=== PATIENT | male | born 1975 | race Caucasian/White ===

== ENCOUNTER 2019-01-14 08:06 | Observation (INO) ==
[2019-01-14] MEDS ORDERED: diazePAM 10 MG/2 ML SYRINGE IVP ONE (08:10)
[2019-01-14] MEDS ORDERED: 0.9 % Sodium Chloride 1,000 ML IVC ONE (08:13)
--- NOTE | 2019-01-14 08:14 | Emergency Department Note ---
Disposition Clinical Impression: Alcohol withdrawal Disposition: Admitted As Inpatient Condition: Fair General Adult HPI - General Chief complaint: ED General Medical Stated complaint: Numb all over Time Seen by Provider: 01/14/19 08:08 - Related Data Previous Rx's Medication Instructions Recorded RX: Amlodipine [Norvasc] 5 mg PO DAILY 30 Days tablet 09/21/15 RX: Chlordiazepoxide [Librium] 25 mg PO TID PRN 10 Days capsule 09/21/15 RX: Metoprolol [Lopressor] 50 mg PO BID 30 Days tablet 09/21/15 RX: Thiamine (B-1) [Vitamin B-1] 100 mg PO DAILY 30 Days tablet 09/21/15 RX: Vitamin B Complex/Vit C/Vit E 1 each PO DAILY 30 Days tablet 09/21/15 [Stresstab] RX: Paroxetine [Paxil] 20 mg PO DAILY #30 tablet 04/12/16 Allergies Allergy/AdvReac Type Severity Reaction Status Date / Time No Known Drug Allergies Allergy See Verified 09/19/15 14:25 Comments Past Medical History - Past Medical History Medical history: Reports: diabetes, hypertension Surgical history: Reports: no surgical history Psychiatric history: Reports: anxiety - Social History Smoking Status: Current every day smoker Smokeless Tobacco Status: Yes Alcohol use: Reports: heavy Drug use: Reports: none Course Vital Signs Temperature 98.3 F 01/14/19 08:09 Pulse Rate 117 01/14/19 08:09 Respiratory Rate 20 01/14/19 08:09 Blood Pressure 166/125 01/14/19 08:09 O2 Sat by Pulse Oximetry 97 01/14/19 08:09 Temperature 98.9 F 01/14/19 15:29 Pulse Rate 102 01/14/19 15:29 Respiratory Rate 18 01/14/19 15:29 Blood Pressure 159/108 01/14/19 15:29 O2 Sat by Pulse Oximetry 98 01/14/19 15:29 Oxygen Delivery Oxygen Delivery Room Air Medical Decision Making - Lab Data Result diagrams: 01/14/19 08:39 01/14/19 08:39 Lab Results 01/14/19 01/14/19 01/14/19 Range/Units 08:18 08:39 08:39 WBC 5.7 (4.3-11.1) K/mcL RBC 4.30 (4.19-5.50) M/mcL Hgb 13.0 (12.9-16.9) g/dL Hct 38.7 (37.5-50.1) % MCV 90.0 (83.0-100.0) fL MCH 30.2 (28.0-33.3) pg MCHC 33.6 (31.6-35.5) g/dL RDW 12.7 (11.5-14.5) % Plt Count 135 L (140-400) K/mcL MPV 9.5 (9.4-12.4) fL Immature Gran % 0.3 (0-4) % Seg Neutrophils % 74.3 % Lymphocytes % 13.6 % Monocytes % 10.8 % Eosinophils % 0.3 % Basophils % 0.7 % Neutrophils # 4.3 (1.6-8.9) K/mcL Lymphocytes # 0.8 (0.6-4.6) K/mcL Monocytes # 0.6 (0.0-1.3) K/mcL Eosinophils # 0.0 (0.0-0.6) K/mcL Basophils # 0.0 (0.0-0.2) K/mcL Sodium 138 (136-145) mEq/L Potassium 3.1 L (3.5-5.1) mEq/L Chloride 103 (98-107) mEq/L Carbon Dioxide 25 (23-29) mEq/L BUN 8 (6-20) mg/dL Creatinine 0.64 L (0.70-1.30) mg/dL Est GFR ( Amer) > 60 (> 60) Est GFR (Non-Af Amer) > 60 (> 60) BUN/Creatinine Ratio 13 (6-26) Glucose 116 H (70-105) mg/dL POC Glucose 129 H (70-99) mg/dL Calculated Osmolality 285 (280-300) Calcium 8.8 (8.6-10.3) mg/dL Magnesium 1.6 (1.6-2.6) mg/dL Total Bilirubin 0.8 (0.3-1.0) mg/dL AST 28 (13-39) Units/L ALT 16 (7-52) Units/L Alkaline Phosphatase 76 (34-104) Units/L Troponin I < 0.03 (< 0.04) ng/mL Serum Total Protein 6.1 L (6.4-8.9) g/dL Albumin 3.9 (3.5-5.7) g/dL Globulin 2.2 L (2.4-3.5) g/dL Albumin/Globulin Ratio 1.8 (1.1-2.2) TSH 2.652 (0.340-5.600) mcIU/mL Ethyl Alcohol (Less than 10) mg/dL 01/14/19 Range/Units 08:39 WBC (4.3-11.1) K/mcL RBC (4.19-5.50) M/mcL Hgb (12.9-16.9) g/dL Hct (37.5-50.1) % MCV (83.0-100.0) fL MCH (28.0-33.3) pg MCHC (31.6-35.5) g/dL RDW (11.5-14.5) % Plt Count (140-400) K/mcL MPV (9.4-12.4) fL Immature Gran % (0-4) % Seg Neutrophils % % Lymphocytes % % Monocytes % % Eosinophils % % Basophils % % Neutrophils # (1.6-8.9) K/mcL Lymphocytes # (0.6-4.6) K/mcL Monocytes # (0.0-1.3) K/mcL Eosinophils # (0.0-0.6) K/mcL Basophils # (0.0-0.2) K/mcL Sodium (136-145) mEq/L Potassium (3.5-5.1) mEq/L Chloride (98-107) mEq/L Carbon Dioxide (23-29) mEq/L BUN (6-20) mg/dL Creatinine (0.70-1.30) mg/dL Est GFR ( Amer) (> 60) Est GFR (Non-Af Amer) (> 60) BUN/Creatinine Ratio (6-26) Glucose (70-105) mg/dL POC Glucose (70-99) mg/dL Calculated Osmolality (280-300) Calcium (8.6-10.3) mg/dL Magnesium (1.6-2.6) mg/dL Total Bilirubin (0.3-1.0) mg/dL AST (13-39) Units/L ALT (7-52) Units/L Alkaline Phosphatase (34-104) Units/L Troponin I (< 0.04) ng/mL Serum Total Protein (6.4-8.9) g/dL Albumin (3.5-5.7) g/dL Globulin (2.4-3.5) g/dL Albumin/Globulin Ratio (1.1-2.2) TSH (0.340-5.600) mcIU/mL Ethyl Alcohol < 10 (Less than 10) mg/dL Attestation Statement - Attestation Attestation: I examined this patient and my medical decision-making was reviewed with the Resident Physician. I agree with the documented findings, disposition and treatment plan as described except to the extent set forth below. [id number] time provided Patient arrived shaky with altered mentation. EMS reports that a neighbor called when the patient was found crawling across the yard. He has a suspected history of daily alcohol intake. The patient is alert with nonfocal, non-seiz ure-like shaking at the time of arrival. He is disheveled and unkempt. He does not answer questions. I have reviewed her previous discharge summary and see that the patient was treated for alcohol withdrawal.
--- NOTE | 2019-01-14 08:15 | Emergency Department Note ---
Disposition Clinical Impression: Alcohol withdrawal Qualifiers: Complication of substance-induced condition: uncomplicated Qualified Code(s): F10.230 - Alcohol dependence with withdrawal, uncomplicated Disposition: Admitted As Inpatient Condition: Fair Forms: ED Satisfaction Letter, Work/School Release Time of Disposition: 09:46 General Adult HPI - General Chief complaint: ED General Medical Stated complaint: Numb all over Time Seen by Provider: 01/14/19 08:08 Source: EMS Mode of arrival: EMS Limitations: no limitations Nursing Notes Reviewed: Yes Vital Signs Reviewed: Yes - History of Present Illness HPI Narrative: Pt is a 43M that states that he drinks every day with last drink reported as "yesterday" coming here today with complaints of "hurting all over" and "inability to feel anything". Chart review shows last admission in 2014 for alcohol withdrawal. EMS was called by a neighbor when they found him crawling across the yard. He appears dishelved and unkept and is shaking on exam. - Related Data Previous Rx's Medication Instructions Recorded Amlodipine [Norvasc] 5 mg PO DAILY 30 Days tablet 09/21/15 Chlordiazepoxide [Librium] 25 mg PO TID PRN 10 Days capsule 09/21/15 Metoprolol [Lopressor] 50 mg PO BID 30 Days tablet 09/21/15 Thiamine (B-1) [Vitamin B-1] 100 mg PO DAILY 30 Days tablet 09/21/15 Vitamin B Complex/Vit C/Vit E 1 each PO DAILY 30 Days tablet 09/21/15 [Stresstab] Paroxetine [Paxil] 20 mg PO DAILY #30 tablet 04/12/16 Allergies Allergy/AdvReac Type Severity Reaction Status Date / Time No Known Drug Allergies Allergy See Verified 09/19/15 14:25 Comments Limitations: ROS unobtainable due to patients medical condition Past Medical History - Past Medical History Medical history: Reports: diabetes, hypertension Surgical history: Reports: no surgical history Psychiatric history: Reports: anxiety - Social History Smoking Status: Current every day smoker Smokeless Tobacco Status: Yes Alcohol use: Reports: heavy Drug use: Reports: none Physical Exam - General Limitations: altered mental status General appearance: other (disheveled, unkempt, eyes closed, shaking on arrival) - Head Head exam: atraumatic, normocephalic - Eye Eye exam: Present: other (eyes closed, resists attempts to open them) - ENT ENT exam: normal exam, normal oropharynx - Neck Neck exam: Present: normal inspection, full ROM - Chest Chest inspection: Present: normal inspection, symmetric chest wall rise. Absent: tenderness - Respiratory Respiratory exam: Present: normal lung sounds bilaterally. Absent: respiratory distress, wheezes - Cardiovascular Cardiovascular exam: Present: regular rate, normal rhythm - Expanded Cardiovascular Exam Peripheral pulses: 2+: radial (R), radial (L), posterior tibialis (R), posterior tibialis (L) - Abdominal Exam Abdominal exam: Present: soft. Absent: tenderness, distention, guarding - Extremities Exam Extremities exam: Present: normal inspection, full ROM - Back Exam Back exam: Present: normal inspection, full ROM - Psychiatric Psychiatric exam: Present: anxious - Skin Skin exam: Present: warm, dry, intact Course Course Narrative: Suspect patient is in alcohol withdrawal, but will perform AMS workup to include CBC, BMP, TSH, bedside glucose, head CT. Will administer valium and banana bag. Vital Signs Temperature 98.3 F 01/14/19 08:09 Pulse Rate 117 01/14/19 08:09 Respiratory Rate 20 01/14/19 08:09 Blood Pressure 166/125 01/14/19 08:09 O2 Sat by Pulse Oximetry 97 01/14/19 08:09 Temperature 98.3 F 01/14/19 08:09 Pulse Rate 110 01/14/19 08:40 Respiratory Rate 18 01/14/19 08:40 Blood Pressure 175/115 01/14/19 08:40 O2 Sat by Pulse Oximetry 96 01/14/19 08:40 Oxygen Delivery Oxygen Delivery Room Air Medical Decision Making - [facility] Narrative Medical decision making narrative: Pts alcohol level was negative, labs were unremarkable except for hypokalemia. He continued to have a depressed level of consciousness with GCS 14, but was able to follow commands and answer questions with multiple redirections. He was given potassium, thiamine, and fluids while in the department. He remained stable while in the department, did not have any seizures, and did not endorse any visual/auditory hallucinations. He was accepted to the medicine service by Dr. Gordon. - Medical Records Medical records reviewed: Yes I reviewed the patient's medical records. - Lab Data Lab results reviewed: Yes I reviewed the patient's lab results. Result diagrams: 01/14/19 08:39 01/14/19 08:39 Lab Results 01/14/19 01/14/19 01/14/19 Range/Units 08:18 08:39 08:39 WBC 5.7 (4.3-11.1) K/mcL RBC 4.30 (4.19-5.50) M/mcL Hgb 13.0 (12.9-16.9) g/dL Hct 38.7 (37.5-50.1) % MCV 90.0 (83.0-100.0) fL MCH 30.2 (28.0-33.3) pg MCHC 33.6 (31.6-35.5) g/dL RDW 12.7 (11.5-14.5) % Plt Count 135 L (140-400) K/mcL MPV 9.5 (9.4-12.4) fL Immature Gran % 0.3 (0-4) % Seg Neutrophils % 74.3 % Lymphocytes % 13.6 % Monocytes % 10.8 % Eosinophils % 0.3 % Basophils % 0.7 % Neutrophils # 4.3 (1.6-8.9) K/mcL Lymphocytes # 0.8 (0.6-4.6) K/mcL Monocytes # 0.6 (0.0-1.3) K/mcL Eosinophils # 0.0 (0.0-0.6) K/mcL Basophils # 0.0 (0.0-0.2) K/mcL Sodium 138 (136-145) mEq/L Potassium 3.1 L (3.5-5.1) mEq/L Chloride 103 (98-107) mEq/L Carbon Dioxide 25 (23-29) mEq/L BUN 8 (6-20) mg/dL Creatinine 0.64 L (0.70-1.30) mg/dL Est GFR ( Amer) > 60 (> 60) Est GFR (Non-Af Amer) > 60 (> 60) BUN/Creatinine Ratio 13 (6-26) Glucose 116 H (70-105) mg/dL POC Glucose 129 H (70-99) mg/dL Calculated Osmolality 285 (280-300) Calcium 8.8 (8.6-10.3) mg/dL Magnesium 1.6 (1.6-2.6) mg/dL Total Bilirubin 0.8 (0.3-1.0) mg/dL AST 28 (13-39) Units/L ALT 16 (7-52) Units/L Alkaline Phosphatase 76 (34-104) Units/L Troponin I < 0.03 (< 0.04) ng/mL Serum Total Protein 6.1 L (6.4-8.9) g/dL Albumin 3.9 (3.5-5.7) g/dL Globulin 2.2 L (2.4-3.5) g/dL Albumin/Globulin Ratio 1.8 (1.1-2.2) TSH 2.652 (0.340-5.600) mcIU/mL Ethyl Alcohol (Less than 10) mg/dL 01/14/19 Range/Units 08:39 WBC (4.3-11.1) K/mcL RBC (4.19-5.50) M/mcL Hgb (12.9-16.9) g/dL Hct (37.5-50.1) % MCV (83.0-100.0) fL MCH (28.0-33.3) pg MCHC (31.6-35.5) g/dL RDW (11.5-14.5) % Plt Count (140-400) K/mcL MPV (9.4-12.4) fL Immature Gran % (0-4) % Seg Neutrophils % % Lymphocytes % % Monocytes % % Eosinophils % % Basophils % % Neutrophils # (1.6-8.9) K/mcL Lymphocytes # (0.6-4.6) K/mcL Monocytes # (0.0-1.3) K/mcL Eosinophils # (0.0-0.6) K/mcL Basophils # (0.0-0.2) K/mcL Sodium (136-145) mEq/L Potassium (3.5-5.1) mEq/L Chloride (98-107) mEq/L Carbon Dioxide (23-29) mEq/L BUN (6-20) mg/dL Creatinine (0.70-1.30) mg/dL Est GFR ( Amer) (> 60) Est GFR (Non-Af Amer) (> 60) BUN/Creatinine Ratio (6-26) Glucose (70-105) mg/dL POC Glucose (70-99) mg/dL Calculated Osmolality (280-300) Calcium (8.6-10.3) mg/dL Magnesium (1.6-2.6) mg/dL Total Bilirubin (0.3-1.0) mg/dL AST (13-39) Units/L ALT (7-52) Units/L Alkaline Phosphatase (34-104) Units/L Troponin I (< 0.04) ng/mL Serum Total Protein (6.4-8.9) g/dL Albumin (3.5-5.7) g/dL Globulin (2.4-3.5) g/dL Albumin/Globulin Ratio (1.1-2.2) TSH (0.340-5.600) mcIU/mL Ethyl Alcohol < 10 (Less than 10) mg/dL - Radiology Data Radiology results reviewed: Yes I reviewed the patient's radiology results. Head CT 01/14/19 08:12 IMPRESSION: No acute intracranial abnormality. D/ / David Castro MD / David Castro MD Interpreting Provider: David Castro MD - EKG Data EKG #1 EKG attestation: Yes I reviewed and interpreted this EKG. EKG results narrative: HR 110, rhythm sinus tachycardia, axis normal. NE 170, QRS 105, QTc 467. No evidence of ST elevation or depression.
[2019-01-14] MEDS ORDERED: Folic Acid 1 MG, MVI, adult with vitamin K 10 ML in 0.9 % Sodium Chloride 500 ML IVPB SCH (08:30)
[2019-01-14 08:53] LABS: Basophils % 0.7 %; Eosinophils % 0.3 %; Hematocrit 38.7 % (37.5-50.1); Immature Granulocytes % 0.3 % (0-4); Lymphocytes # 0.8 K/mcL (0.6-4.6); Lymphocytes % 13.6 %; Mean Corpuscular HGB Conc 33.6 g/dL (31.6-35.5); Mean Corpuscular Hemoglobin 30.2 pg (28.0-33.3); Mean Platelet Volume 9.5 fL (9.4-12.4); Monocytes # 0.6 K/mcL (0.0-1.3); Monocytes % 10.8 %; Neutrophils # 4.3 K/mcL (1.6-8.9); Platelet Count 135 K/mcL (140-400); Red Cell Distribution Width 12.7 % (11.5-14.5); Segmented Neutrophils % 74.3 %
[2019-01-14 09:25] LABS: Alanine Aminotransferase 16 Units/L (7-52); Albumin 3.9 g/dL (3.5-5.7); Albumin/Globulin Ratio 1.8 (1.1-2.2); Alkaline Phosphatase 76 Units/L (34-104); Aspartate Amino Transferase 28 Units/L (13-39); BUN/Creatinine Ratio 13 (6-26); Bilirubin,Total 0.8 mg/dL (0.3-1.0); Blood Urea Nitrogen 8 mg/dL (6-20); Calcium 8.8 mg/dL (8.6-10.3); Carbon Dioxide 25 mEq/L (23-29); Chloride 103 mEq/L (98-107); Globulin 2.2 g/dL (2.4-3.5); Glucose 116 mg/dL (70-105); Magnesium 1.6 mg/dL (1.6-2.6); Osmolality,Calculated 285 (280-300); Potassium 3.1 mEq/L (3.5-5.1); Sodium 138 mEq/L (136-145); Total Protein 6.1 g/dL (6.4-8.9); Troponin I < 0.03 ng/mL (< 0.04); eGFR For Non-African Americans > 60 (> 60)
[2019-01-14 09:27] LABS: Thyroid Stimulating Hormone 2.652 mcIU/mL (0.340-5.600)
[2019-01-14] MEDS ORDERED: Potassium Chloride 40 MEQ, Lidocaine 1% 2 ML in D5% in Water 500 ML IVPB ONE (09:30)
[2019-01-14] MEDS ORDERED: Naloxone 0.4 MG/ML INJ IVP PRN (11:37)
[2019-01-14] MEDS ORDERED: Acetaminophen 325 MG TABLET PO PRN (11:37)
[2019-01-14] MEDS ORDERED: *HR* LORazepam 2 MG/ML VIAL IVP PRN ×3 (11:41)
[2019-01-14] MEDS ORDERED: *HR* Promethazine 25 MG/ML VIAL IVP PRN (11:41)
[2019-01-14] MEDS: Thiamine (B-1) 100 MG TABLET PO SCH (13:24)
[2019-01-14] MEDS: amLODIPine 5 MG TABLET PO SCH (13:24)
--- NOTE | 2019-01-14 16:20 | Internal Med History&Physical ---
Date of Encounter: 01/14/19 Time of Encounter: 11:00 Internal Medicine - H&P: HPI Chief complaint: Altered mental status Admitted From: Home Plans for Post Hospital Care: Home History of present illness: Mr. Fonseca is a 43 year old male sent to ER by EMS for altered mental status. Past medical history is significant for alcoholism with suspect alcohol withdrawal seizure, hypertension. Patient was found crawling in backyard by neighbors. EMS was called by neighbors and patient was sent to ER. When I saw patient in the emergency room, patient is awake alert, oriented 3. Patient said he cannot remember what beavers ppened saw him. Per ER documentation, patient has non seizure like shaking upon arrival, which improved after place patient on warm blanket. Patient denies nausea, vomiting, cough, fever. Patient denies tongue biting, or urinary/fecal incontinence. Patient drinks 6-7 beers every day and last drink was yesterday. In the emergency room, he was found hypokalemia with potassium 3.1. Patient was given supplement and admitted for further management. Past Med Surg Social Fam HX - Past Medical History Medical history: diabetes, hypertension Psychiatric history: anxiety - Past Surgical History Surgical History: no surgical history - Social History Smoking Status: Current every day smoker Smokeless Tobacco Status: Yes Alcohol use: heavy Drug use: none - Family History Father Family Member Ethnicity: Non- Living Status: Internal Medicine - H&P: Meds Amlodipine [Norvasc] 5 mg PO DAILY 30 Days tablet 09/21/15 [Rx] Chlordiazepoxide [Librium] 25 mg PO TID PRN 10 Days capsule 09/21/15 [Rx] Metoprolol [Lopressor] 50 mg PO BID 30 Days tablet 09/21/15 [Rx] Thiamine (B-1) [Vitamin B-1] 100 mg PO DAILY 30 Days tablet 09/21/15 [Rx] Vitamin B Complex/Vit C/Vit E [Stresstab] 1 each PO DAILY 30 Days tablet [Rx] Paroxetine [Paxil] 20 mg PO DAILY #30 tablet 04/12/16 [Rx] Allergy/AdvReac Type Severity Reaction Status Date / Time No Known Drug Allergies Allergy See Verified 09/19/15 14:25 Comments All Systems PM: A 10-system review of systems was performed and is negative for pertinent findings except as documented above in the HPI. - Constitutional Vitals: Temp Pulse Resp BP Pulse Ox 98.9 F 102 18 159/108 98 01/14/19 15:29 01/14/19 15:29 01/14/19 15:29 01/14/19 15:29 01/14/19 15:29 Exam: Pt is AAO x 3, in NAD, poor hygiene HEENT: NC/AT, PERRL Neck: Supple, no JVD, no LAD Lungs: CTA b/l Heart: S1S2, RRR Abd: Soft, nontender, BS present Ext: ROM wnl, no pedal edema Neuro: No focal deficit Internal Med - H&P Results - Labs CBC & Chem 7: 01/14/19 08:39 01/14/19 08:39 Labs: Short CBC 01/14/19 Range/Units 08:39 WBC 5.7 (4.3-11.1) K/mcL Hgb 13.0 (12.9-16.9) g/dL Hct 38.7 (37.5-50.1) % Plt Count 135 L (140-400) K/mcL Neutrophils # 4.3 (1.6-8.9) K/mcL BMP 01/14/19 08:39 Sodium 138 Potassium 3.1 L Chloride 103 Carbon Dioxide 25 BUN 8 Creatinine 0.64 L Glucose 116 H Calcium 8.8 Cardiac Enzymes 01/14/19 Range/Units 08:39 Troponin I < 0.03 (< 0.04) ng/mL Liver Function 01/14/19 Range/Units 08:39 Total Bilirubin 0.8 (0.3-1.0) mg/dL AST 28 (13-39) Units/L ALT 16 (7-52) Units/L Alkaline Phosphatase 76 (34-104) Units/L Albumin 3.9 (3.5-5.7) g/dL - Impressions ITS Impressions Head CT 01/14/19 08:12 IMPRESSION: No acute intracranial abnormality. D/ / David Castro MD / David Castro MD Interpreting Provider: David Castro MD - Assessment and Plan (1) DVT prophylaxis Current Visit: Yes Status: Acute Assessment and plan: Heparin subcutaneously (2) Alcohol withdrawal Current Visit: Yes Status: Acute Assessment and plan: Patient presented with altered mental status. No clear evidence of seizure but has history of alcohol withdrawal seizure. Mental status is back to normal now. - We will place patient on [facility] protocol - Banana bag x 3 - Librium 25mg po tid - Aspiration precaution - Closely monitor patient Qualifiers: Complication of substance-induced condition: uncomplicated Qualified Code(s): F10.230 - Alcohol dependence with withdrawal, uncomplicated (3) Hypertension Current Visit: No Status: Chronic Assessment and plan: Patient ran out of medication for about 1 year. Please him on amlodipine 10 mg by mouth daily. Resume home medications after verification Qualifiers: Hypertension type: essential hypertension Qualified Code(s): I10 - Essential (primary) hypertension (4) Hypokalemia Current Visit: Yes Status: Acute Assessment and plan: Give supplement in the emergency room. closely monitor potassium level - Time Spent With Patient Total time spent is greater than 50% in coordination of care (as documented) at patient's floor/unit and/or counseling patient: 40 min Greater than 35 minutes
[2019-01-14] MEDS: *HR* Heparin 5,000 UNIT/ML VIAL SQ SCH (17:37)
--- NOTE | 2019-01-14 23:14 | Electrocardiograph Report ---
[place] [facility] Test Date: 2019-01-14 Pat Name: Yakov Fonseca Department: EXAM4 Room: [facility] Gender: M Veneer Gluer: : 1975 Requested By: Zhao Mauricio Order Number: [id number] Reading MD: Sebastien Rodriguez Measurements Intervals [place] Rate: 110 P: 38 ID: [id number] QRS: 85 QRSD: 105 T: 36 QT: 345 QTc: 467 Interpretive Statements Sinus tachycardia Electronically Signed On 01-14-2019 23:12:46 EDT by Sebastien Rodriguez
[2019-01-15] MEDS: *HR* Heparin 5,000 UNIT/ML VIAL SQ SCH ×2 (05:59→17:10)
[2019-01-15 06:26] LABS: Basophils % 0.5 %; Eosinophils # 0.1 K/mcL (0.0-0.6); Eosinophils % 2.6 %; Hematocrit 42.5 % (37.5-50.1); Hemoglobin 13.8 g/dL (12.9-16.9); Immature Granulocytes % 0.3 % (0-4); Lymphocytes # 1.6 K/mcL (0.6-4.6); Lymphocytes % 40.5 %; Mean Corpuscular HGB Conc 32.5 g/dL (31.6-35.5); Mean Corpuscular Hemoglobin 30.2 pg (28.0-33.3); Mean Platelet Volume 9.7 fL (9.4-12.4); Monocytes # 0.5 K/mcL (0.0-1.3); Monocytes % 12.3 %; Neutrophils # 1.7 K/mcL (1.6-8.9); Platelet Count 146 K/mcL (140-400); Red Blood Count 4.57 M/mcL (4.19-5.50); Red Cell Distribution Width 12.5 % (11.5-14.5); Segmented Neutrophils % 43.8 %
[2019-01-15 06:49] LABS: BUN/Creatinine Ratio 8 (6-26); Blood Urea Nitrogen 6 mg/dL (6-20); Calcium 9.1 mg/dL (8.6-10.3); Carbon Dioxide 29 mEq/L (23-29); Chloride 104 mEq/L (98-107); Glucose 107 mg/dL (70-105); Magnesium 2.2 mg/dL (1.6-2.6); Osmolality,Calculated 284 (280-300); Phosphorous 4.3 mg/dL (2.7-4.5); Potassium 3.8 mEq/L (3.5-5.1); Sodium 138 mEq/L (136-145); eGFR For Non-African Americans > 60 (> 60)
--- NOTE | 2019-01-15 07:34 | Internal Med Progress Note ---
<Edy Rodriguez - Last Filed: 01/15/19 09:48> Hospitalist Progress Note - Encounter Date of Encounter: 01/15/19 Time of Encounter: 09:48 - Subjective Interval History: Patient reports no acute events overnight. He is admitted for alcohol withdrawal. Reports his last beer was 2 nights ago. He usually drinks 6-7 tall boys every day. He has a history of withdrawal seizures from alcohol in the past. He is requesting to detox as well as requires information on help with alcohol cessation after discharge. - Exam Vitals: Temp Pulse Resp BP Pulse Ox 98.3 F 88 15 131/88 99 01/15/19 07:14 01/15/19 07:14 01/15/19 07:14 01/15/19 07:14 01/15/19 07:14 Exam: General: pleasant, without distress Cardiovascualr: Regular rate and rhythm with no murmur, absent gallops or rubs, absent pedal edema, radial pulses 2 out of 4 Lungs: Clear to auscultation bilaterally, not in respiratory distress Abdomen: Soft nontender, nondistended positive bowel sounds, absent hepatomegaly Skin: warm and dry, absent rash, absent open wounds and nodules MSK: absent clubbing, cyanosis, joints without swelling. Bilateral upper extremity tremors Neuro: Alert oriented 3, no focal deficits Psych: good insight and judgment mildly anxious - Assessment and Plan (1) Alcohol withdrawal Current Visit: Yes Status: Acute Assessment and Plan: Alert oriented 3, tremors noted on exam. Absent hallucinations or confusion. Continue with [place] protocol continue libirum Social work consult Patient received banana bag. (2) Hypertension Current Visit: Yes Status: Chronic Assessment and Plan: Continue amlodipine. Controlled. (3) DVT prophylaxis Current Visit: Yes Status: Acute Assessment and Plan: Heparin subcutaneous. (4) Hypokalemia Current Visit: Yes Status: Resolved Assessment and Plan: Resolved - Time Spent with Patient Total time spent is greater than 50% in coordination of care (as documented) at patient's floor/unit and/or counseling patient: Internal Medicine: Result - Labs CBC & Chem 7: 01/15/19 05:52 01/15/19 05:52 Labs: Short CBC 01/14/19 01/15/19 Range/Units 08:39 05:52 WBC 5.7 3.8 L (4.3-11.1) K/mcL Hgb 13.0 13.8 (12.9-16.9) g/dL Hct 38.7 42.5 (37.5-50.1) % Plt Count 135 L 146 (140-400) K/mcL Neutrophils # 4.3 1.7 (1.6-8.9) K/mcL BMP 01/14/19 01/15/19 08:39 05:52 Sodium 138 138 Potassium 3.1 L 3.8 Chloride 103 104 Carbon Dioxide 25 29 BUN 8 6 Creatinine 0.64 L 0.72 Glucose 116 H 107 H Calcium 8.8 9.1 Cardiac Enzymes 01/14/19 Range/Units 08:39 Troponin I < 0.03 (< 0.04) ng/mL Liver Function 01/14/19 Range/Units 08:39 Total Bilirubin 0.8 (0.3-1.0) mg/dL AST 28 (13-39) Units/L ALT 16 (7-52) Units/L Alkaline Phosphatase 76 (34-104) Units/L Albumin 3.9 (3.5-5.7) g/dL - Impressions Impressions Head CT 01/14/19 08:12 IMPRESSION: No acute intracranial abnormality. D/ / David Castro MD / David Castro MD Interpreting Provider: David Castro MD Consult Discharge Plan - Plan Referrals: NONE,PCP [Primary Care Provider] - <Marques Vickers - Last Filed: 01/15/19 11:33> Hospitalist Progress Note - Encounter Date of Encounter: 01/15/19 - Exam Vitals: Temp Pulse Resp BP Pulse Ox 98.3 F 88 15 131/88 99 01/15/19 07:14 01/15/19 07:14 01/15/19 07:14 01/15/19 07:14 01/15/19 07:14 - Assessment and Plan (1) Hypertension Current Visit: Yes Status: Chronic (2) Alcohol withdrawal Current Visit: Yes Status: Acute (3) DVT prophylaxis Current Visit: Yes Status: Acute (4) Hypokalemia Current Visit: Yes Status: Resolved - Time Spent with Patient Total time spent is greater than 50% in coordination of care (as documented) at patient's floor/unit and/or counseling patient: Internal Medicine: Result - Labs CBC & Chem 7: 01/15/19 05:52 01/15/19 05:52 Labs: Short CBC 01/15/19 Range/Units 05:52 WBC 3.8 L (4.3-11.1) K/mcL Hgb 13.8 (12.9-16.9) g/dL Hct 42.5 (37.5-50.1) % Plt Count 146 (140-400) K/mcL Neutrophils # 1.7 (1.6-8.9) K/mcL BMP 01/15/19 05:52 Sodium 138 Potassium 3.8 Chloride 104 Carbon Dioxide 29 BUN 6 Creatinine 0.72 Glucose 107 H Calcium 9.1 - Attending Attestation I have seen and independently examined this patient and I agree with plan as documented above Plan Alcohol withdrawal. Continue CIWA protocol and wean off IV benzodiazepines as tolerated Hypertension. continue amlodipine <Edy Rodriguez - Last Filed: 01/15/19 09:48> (1) Alcohol withdrawal Qualifiers: Complication of substance-induced condition: uncomplicated Qualified Code(s): F10.230 - Alcohol dependence with withdrawal, uncomplicated (2) Hypertension Qualifiers: Hypertension type: essential hypertension Qualified Code(s): I10 - Essential (primary) hypertension <Marques Vickers - Last Filed: 01/15/19 11:33> (1) Hypertension Qualifiers: Hypertension type: essential hypertension Qualified Code(s): I10 - Essential (primary) hypertension (2) Alcohol withdrawal Qualifiers: Complication of substance-induced condition: uncomplicated Qualified Code(s): F10.230 - Alcohol dependence with withdrawal, uncomplicated
[2019-01-15] MEDS: amLODIPine 5 MG TABLET PO SCH (07:42)
[2019-01-15] MEDS: Thiamine (B-1) 100 MG TABLET PO SCH (07:42)
[2019-01-15] MEDS: Folic Acid 1 MG, MVI, adult with vitamin K 10 ML in 0.9 % Sodium Chloride 500 ML IVPB SCH (17:07)
[2019-01-16] MEDS: *HR* Heparin 5,000 UNIT/ML VIAL SQ SCH ×2 (06:14→17:55)
[2019-01-16] MEDS: amLODIPine 5 MG TABLET PO SCH (09:29)
[2019-01-16] MEDS: Thiamine (B-1) 100 MG TABLET PO SCH (09:29)
--- NOTE | 2019-01-16 10:33 | Internal Med Progress Note ---
<Edy Rodriguez - Last Filed: 01/16/19 10:31> Hospitalist Progress Note - Encounter Date of Encounter: 01/16/19 Time of Encounter: 10:31 - Subjective Interval History: No acute events overnight. Patient reports he is a little bit anxious and has tremors in his hands this morning. Otherwise she has no other complaints. - Exam Vitals: Temp Pulse Resp BP Pulse Ox 98.3 F 80 20 125/87 100 01/16/19 08:13 01/16/19 08:13 01/16/19 08:13 01/16/19 08:13 01/16/19 08:13 Exam: General: pleasant, without distress Cardiovascualr: Regular rate and rhythm with no murmur, absent gallops or rubs, absent pedal edema, radial pulses 2 out of 4 Lungs: Clear to auscultation bilaterally, not in respiratory distress Abdomen: Soft nontender, nondistended positive bowel sounds, absent hepatomegaly Skin: warm and dry, absent rash, absent open wounds and nodules MSK: absent clubbing, cyanosis, joints without swelling. Bilateral upper ext remity tremors Neuro: Alert oriented 3, no focal deficits Psych: good insight and judgment mildly anxious - Assessment and Plan (1) Alcohol withdrawal Current Visit: Yes Status: Acute Assessment and Plan: We will continue Sever protocol. Continue Librium taper Likely discharge home tomorrow. Patient has received information from social work for help with outpatient rehabilitation from alcohol. (2) Hypertension Current Visit: Yes Status: Chronic Assessment and Plan: Continue home medications. (3) DVT prophylaxis Current Visit: Yes Status: Acute Assessment and Plan: Heparin subcutaneous - Time Spent with Patient Total time spent is greater than 50% in coordination of care (as documented) at patient's floor/unit and/or counseling patient: Internal Medicine: Result - Labs CBC & Chem 7: 01/15/19 05:52 01/15/19 05:52 Consult Discharge Plan - Plan Referrals: NONE,PCP [Primary Care Provider] - <Marques Vickers - Last Filed: 01/16/19 14:30> Hospitalist Progress Note - Encounter Date of Encounter: 01/16/19 - Exam Vitals: Temp Pulse Resp BP Pulse Ox 98.2 F 86 20 114/75 99 01/16/19 11:03 01/16/19 11:03 01/16/19 11:03 01/16/19 11:03 01/16/19 11:03 - Assessment and Plan (1) Hypertension Current Visit: Yes Status: Chronic (2) Alcohol withdrawal Current Visit: Yes Status: Acute (3) DVT prophylaxis Current Visit: Yes Status: Acute (4) Hypokalemia Current Visit: Yes Status: Resolved - Time Spent with Patient Total time spent is greater than 50% in coordination of care (as documented) at patient's floor/unit and/or counseling patient: Internal Medicine: Result - Labs CBC & Chem 7: 01/15/19 05:52 01/15/19 05:52 - Attending Attestation I have seen and independently examined this patient and I agree with plan as documented above Plan Alcohol withdrawal. Continue CIWA protocol and wean off IV benzodiazepines as tolerated Hypertension. continue amlodipine <Edy Rodriguez - Last Filed: 01/16/19 10:31> (1) Alcohol withdrawal Qualifiers: Complication of substance-induced condition: uncomplicated Qualified Code(s): F10.230 - Alcohol dependence with withdrawal, uncomplicated (2) Hypertension Qualifiers: Hypertension type: essential hypertension Qualified Code(s): I10 - Essential (primary) hypertension <Marques Vickers - Last Filed: 01/16/19 14:30> (1) Hypertension Qualifiers: Hypertension type: essential hypertension Qualified Code(s): I10 - Essential (primary) hypertension (2) Alcohol withdrawal Qualifiers: Complication of substance-induced condition: uncomplicated Qualified Code(s): F10.230 - Alcohol dependence with withdrawal, uncomplicated
[2019-01-16] MEDS: Folic Acid 1 MG, MVI, adult with vitamin K 10 ML in 0.9 % Sodium Chloride 500 ML IVPB SCH (17:54)
[2019-01-17] MEDS: *HR* Heparin 5,000 UNIT/ML VIAL SQ SCH (05:51)
[2019-01-17] MEDS: amLODIPine 5 MG TABLET PO SCH (08:57)
[2019-01-17] MEDS: Thiamine (B-1) 100 MG TABLET PO SCH (08:57)
[2019-01-17 11:08] VITALS: BP 142/95
--- NOTE | 2019-01-17 12:20 | Discharge Summary ---
<JenniferEdy Keith - Last Filed: 01/17/19 12:18> - NOTES TO OUTPATIENT PROVIDER Notes to Outpatient Provider: Patient admitted for alcohol withdrawal. Underwent a cold detox and was given information by social work for further help with alcohol cessation outpatient. Date of Encounter: 01/17/19 Time of Encounter: 12:18 - Discharge Diagnosis (1) Alcohol withdrawal Priority: Primary Status: Resolved Qualifiers: Complication of substance-induced condition: uncomplicated Qualified Code(s): F10.230 - Alcohol dependence with withdrawal, uncomplicated (2) Hypertension Priority: Secondary Status: Chronic Qualifiers: Hypertension type: essential hypertension Qualified Code(s): I10 - Essential (primary) hypertension (3) DVT prophylaxis Priority: Secondary Status: Acute Hospital course: Mr. Fonseca is a 43 year old male presented with altered mental status. Patient was found by neighbors calling in the backyard. Upon presentation he is awake and alert oriented 3. Patient reports he drinks 6-7 tall boys daily. He is found to have hypokalemia. He underwent alcohol detox with Librium and Ativan when necessary. Patient was in the hospital for 3 nights. This morning he denies anxiety, tremors. He is tolerating his diet and ambulating independently. He is provided with information for ALCOHOL cessation help in the outpatient setting. - Time Spent with Patient Total time spent providing and/or coordinating discharge services: - Discharge Medications Prescriptions: New amLODIPine [Norvasc] 10 mg PO DAILY #30 tablet Folic Acid 1 mg PO DAILY #30 tablet Thiamine (B-1) [Vitamin B-1] 100 mg PO DAILY #30 tablet Home Medications: Folic Acid 1 mg PO DAILY #30 tablet 01/17/19 [Rx] Thiamine (B-1) [Vitamin B-1] 100 mg PO DAILY #30 tablet 01/17/19 [Rx] amLODIPine [Norvasc] 10 mg PO DAILY #30 tablet 01/17/19 [Rx] Allergies/Adverse Reactions: Allergy/AdvReac Type Severity Reaction Status Date / Time No Known Drug Allergies Allergy See Verified 09/19/15 14:25 Comments Date of admission: 01/14/19 14:30 Primary care physician: PCP NONE Consults: 01/14/19 11:39 Consult to Biofuels Technology Manager [CONS] Routine Reason for SW Consult: Alcoholism Discharging clinician: Edy Rodriguez Anticipated date of discharge: 01/17/19 - Constitutional Vitals: Temp Pulse Resp BP Pulse Ox 97.5 F L 101 20 142/95 100 01/17/19 11:04 01/17/19 11:04 01/17/19 11:04 01/17/19 11:04 01/17/19 11:04 Exam: General: pleasant, without distress Cardiovascualr: Regular rate and rhythm with no murmur, absent gallops or rubs, absent pedal edema, radial pulses 2 out of 4 Lungs: Clear to auscultation bilaterally, not in respiratory distress Abdomen: Soft nontender, nondistended positive bowel sounds, absent hepatomegaly Skin: warm and dry, absent rash, absent open wounds and nodules MSK: absent clubbing, cyanosis, joints without swelling. Neuro: Alert oriented 3, no focal deficits Psych: good insight and judgment - Patient Status Disposition: Home, Self-Care Condition: Fair Functional capacity at discharge: independent ambulation Overall status at discharge: patient is progressing back to baseline - Discharge Instructions Instructions: Thiamine (Vitamin B-1) (By mouth), Folic Acid (By mouth), Amlodipine (By mouth), Chronic Hypertension (DC) Follow Up With: NONE,PCP [Primary Care Provider] - - Diet and Activity Activity: increase activity as tolerated Diet: advance to your usual diet <Marques Vickers - Last Filed: 01/17/19 15:12> Date of Encounter: 01/17/19 - Discharge Diagnosis (1) Hypertension Status: Chronic Qualifiers: Hypertension type: essential hypertension Qualified Code(s): I10 - Essential (primary) hypertension (2) Alcohol withdrawal Status: Resolved Qualifiers: Complication of substance-induced condition: uncomplicated Qualified Code(s): F10.230 - Alcohol dependence with withdrawal, uncomplicated (3) DVT prophylaxis Status: Acute (4) Hypokalemia Status: Resolved Hospital course: Mr. Fonseca is a 43 year old male - Time Spent with Patient Total time spent providing and/or coordinating discharge services: Date of admission: 01/14/19 14:30 Primary care physician: PCP NONE Consults: 01/14/19 11:39 Consult to [employer]fuels Technology Manager [CONS] Routine Reason for SW Consult: Alcoholism - Constitutional Vitals: Temp Pulse Resp BP Pulse Ox 97.5 F L 101 20 142/95 100 01/17/19 11:04 01/17/19 11:04 01/17/19 11:04 01/17/19 11:04 01/17/19 11:04 - Attending Attestation I have seen and independently examined this patient and I agree with plan as documented above Exam Gen. NAD Resp. CTAB CVS. S1 S2 WNL GI. Soft, NT, ND, +BS Plan Alcohol withdrawal. Continue CIWA protocol and wean off IV benzodiazepines as tolerated. Improved. Discharged in a stable condition. Counseled and given alcohol rehab options Hypertension. continue amlodipine
[2019-01-18] MEDS ORDERED: Folic Acid 1 MG TABLET PO SCH (09:00)
== END 2019-01-17 14:10 | disposition home or self-care (01) ==
LOC: 2ANU 08:06 → EMEROOARM 08:06 → SUATTDRO 14:30 → 2ANU 15:41
PROVIDERS: ADMIT Internal Medicine; ATTEND Student in an Organized Health Care Education/Training Program

== ENCOUNTER 2019-07-23 17:16 | Observation (INO) ==
[2019-07-23] MEDS ORDERED: 0.9 % Sodium Chloride 1,000 ML IVC ONE ×3 (17:47→21:21)
[2019-07-23] MEDS ORDERED: *HR* Promethazine 25 MG/ML VIAL IVP ONE (18:01)
[2019-07-23 18:38] LABS: Basophils # 0.1 K/mcL (0.0-0.2); Basophils % 0.9 %; Hematocrit 42.4 % (37.5-50.1); Hemoglobin 14.1 g/dL (12.9-16.9); Immature Granulocytes % 0.2 % (0-4); Lymphocytes # 0.3 K/mcL (0.6-4.6); Lymphocytes % 5.5 %; Mean Corpuscular HGB Conc 33.3 g/dL (31.6-35.5); Mean Corpuscular Hemoglobin 31.1 pg (28.0-33.3); Mean Corpuscular Volume 93.6 fL (83.0-100.0); Mean Platelet Volume 8.9 fL (9.4-12.4); Monocytes # 0.5 K/mcL (0.0-1.3); Monocytes % 8.4 %; Platelet Count 243 K/mcL (140-400); Red Blood Count 4.53 M/mcL (4.19-5.50); Red Cell Distribution Width 11.9 % (11.5-14.5); White Blood Count 5.9 K/mcL (4.3-11.1)
[2019-07-23 18:42] LABS: VBG HCO3 30 mEq/L (21-27); VBG PCO2 49 mmHg (41-51); VBG PO2 76 mmHg (25-50)
[2019-07-23 19:00] LABS: Alanine Aminotransferase 87 Units/L (7-52); Albumin 4.7 g/dL (3.5-5.7); Albumin/Globulin Ratio 1.6 (1.1-2.2); Alkaline Phosphatase 73 Units/L (34-104); Aspartate Amino Transferase 73 Units/L (13-39); BUN/Creatinine Ratio 12 (6-26); Bilirubin,Direct 0.1 mg/dL (0.0-0.2); Bilirubin,Indirect 0.6 mg/dL (0.0-1.2); Bilirubin,Total 0.7 mg/dL (0.3-1.0); Blood Urea Nitrogen 9 mg/dL (6-20); Carbon Dioxide 29 mEq/L (23-29); Chloride 97 mEq/L (98-107); Ethanol < 10 mg/dL (Less than 10); Glucose 140 mg/dL (70-105); Osmolality,Calculated 283 (280-300); Potassium 4.4 mEq/L (3.5-5.1); Sodium 136 mEq/L (136-145); Total Protein 7.7 g/dL (6.4-8.9); Troponin I < 0.03 ng/mL (< 0.04); eGFR For African Americans > 60 (> 60); eGFR For Non-African Americans > 60 (> 60)
[2019-07-23] MEDS ORDERED: *HR* LORazepam 0.5 MG TABLET PO ONE (19:36)
[2019-07-23] MEDS ORDERED: *HR* LORazepam 2 MG/ML VIAL IVP ONE (20:54)
[2019-07-23] MEDS ORDERED: Neosporin OINT 1 APPL PACKET TP ONE (21:24)
--- NOTE | 2019-07-23 22:20 | Emergency Department Note ---
Disposition Clinical Impression: Syncope, Tachycardia, Alcohol withdrawal seizure Disposition: Admitted As Inpatient Condition: Fair Time of Disposition: 22:23 General Adult HPI - General Chief complaint: ED Fall Stated complaint: fall/possible seziure Time Seen by Provider: 07/23/19 17:45 Source: patient, EMS Limitations: no limitations Nursing Notes Reviewed: Yes Vital Signs Reviewed: Yes - History of Present Illness HPI Narrative: The patient presented to the emergency department with chief complaint of possible syncope versus seizure. The patient does have a history of alcohol abuse, also reports a history of alcohol withdrawal seizures. The patient states he was at the convenience store he reports having drank 2 beers today but he had 2 full beers brought with him. Apparently was found laying on the ground in the convenience store and paramedics were called. The patient states he recalls feeling dizzy and then he thinks he might a passed out. He states he did not have any headache he had no chest pain no shortness of breath no palpitations states he has felt lightheaded like he might pass out. He states that he is not sure if he had a seizure or not he did not bite his tongue he did not lose continence he states he still feels weak and dizzy but again denies any significant pain apart from in his right ear where he fell and cut it open. Patient denies any recent black or bloody stool denies urinary changes denies drug use, does report that 4 years ago he had an alcohol withdrawal seizure. He is supposed take medication for hypertension but does not he also status post take some medications for anxiety but does not know what this medication is and has not been taking it. Patient denies any unilateral numbness or weakness denies any pain in his extremities denies any back pain or neck pain. Patient denies any recent trauma. Denies any recent exposures. Denies any recent travel. Denies recent illnesses. Pain Scale: 3 - Related Data Home Medications Medication Instructions Recorded Confirmed amLODIPine [Norvasc] 5 mg PO DAILY 05/15/19 05/15/19 Previous Rx's Medication Instructions Recorded Folic Acid 1 mg PO DAILY #30 tablet 01/17/19 Thiamine (B-1) [Vitamin B-1] 100 mg PO DAILY #30 tablet 01/17/19 cephALEXin [Keflex] 500 mg PO QID #28 capsule 05/16/19 Allergies Allergy/AdvReac Type Severity Reaction Status Date / Time No Known Drug Allergies Allergy See Verified 09/19/15 14:25 Comments All systems ED: reviewed and negative except as stated. Review of Systems: As Per HPI Past Medical History - Past Medical History Medical history: Reports: diabetes, hypertension, seizures Surgical history: Reports: no surgical history Psychiatric history: Reports: anxiety - Social History Smoking Status: Current every day smoker Smokeless Tobacco Status: Yes Alcohol use: Reports: heavy, recent Drug use: Reports: none Physical Exam - General Limitations: no limitations, other (Slightly disheveled and rundown in appearance but completely awake and talking.) General appearance: alert, in no apparent distress - Head Head exam: normocephalic, other (Patient has 2 lacerations noted to the pinna of his right ear within the auricle and folds of the ear, does not appear to expose the cartilage but is close to the cartilage. No associated auricular hematoma. No hemotympanum. No other evidence of trauma to the face or head.) - Eye Eye exam: Present: normal appearance, PERRL, EOMI. Absent: scleral icterus - ENT ENT exam: normal exam, normal oropharynx - Neck Neck exam: Present: normal inspection, full ROM, trachea midline. Absent: tenderness, meningismus, lymphadenopathy - Chest Chest inspection: Present: normal inspection, symmetric chest wall rise - Respiratory Respiratory exam: Present: normal lung sounds bilaterally. Absent: respiratory distress, wheezes - Cardiovascular Cardiovascular exam: Present: normal rhythm, tachycardia. Absent: systolic murmur, rubs, gallop, clicks - Abdominal Exam Abdominal exam: Present: soft, Non-Tender - Extremities Exam Extremities exam: Present: normal inspection, full ROM, normal capillary refill. Absent: tenderness, pedal edema - Expanded Lower Extremity Exam Hip/Pelvis exam: Present: normal inspection, full ROM Neurovascular/Tendon exam: Present: normal capillary refill. Absent: pulse deficit, motor deficit, sensory deficit, tendon deficit - Back Exam Back exam: Present: normal inspection, full ROM. Absent: tenderness, CVA tende rness (R), CVA tenderness (L) - Neurological Exam Neurological exam: Present: alert, oriented X3, CN II-XII intact, reflexes normal. Absent: motor sensory deficit - Psychiatric Psychiatric exam: Present: normal affect, normal mood - Skin Skin exam: Present: warm, dry, intact, normal color, rash Course Vital Signs Temperature 97.8 F 07/23/19 17:27 Pulse Rate 119 07/23/19 17:27 Respiratory Rate 15 07/23/19 17:27 Blood Pressure 172/121 07/23/19 17:27 O2 Sat by Pulse Oximetry 97 07/23/19 17:27 Temperature 97.8 F 07/23/19 17:27 Pulse Rate 107 07/23/19 22:17 Respiratory Rate 18 07/23/19 22:17 Blood Pressure 160/104 07/23/19 22:17 O2 Sat by Pulse Oximetry 97 07/23/19 22:17 Oxygen Delivery Oxygen Delivery Room Air Medical Decision Making - MDM Narrative Medical decision making narrative: Patient is in no acute distress, he is tachycardic with a heart rate of approximately 125 on the monitor appears to be sinus rhythm and EKG was obtained which demonstrated sinus tachycardia, with a heart rate of 117 with no evidence of acute ischemic dysrhythmia or hyperkalemia no evidence of Wellens syndrome or Brugada pattern no evidence of prolonged QT. The patient stated that he did not feel like he had a seizure he was not incontinent and did not bite his tongue, but does have a history of alcohol withdrawal but reported that he drank 2 beers prior to arrival. He was given 2 L of IV fluids, and evaluation for potential syncope was initiated. Basic laboratory studies were all within acceptable limits, apart from mildly elevated serum ketones 1.35, but no anion gap, nothing to suggest alcoholic ketoacidosis, magnesium was within acceptable limits. Cardiac enzymes were negative. Alcohol level came back at undetectable, and patient remained persistently tachycardic, despite IV fluids he was given by mouth Ativan and a third liter of IV fluids but remained persistently tachycardic was given IV Ativan, and still has persistent tachycardia he states that otherwise he feels fine apart from feeling a little bit dizzy and he thinks that if he stood up he might feel weak. He continues to deny any pain chest pain shortness of breath. The patient I believe may be developing signs and symptoms of alcohol withdrawal he does appear somewhat shaky as well but does not have any evidence of recurrent seizure or syncope. Head CT cervical spine CT and chest x-ray all as interpreted by radiology showed no acute findings. Secondary to persistent tachycardia and dizziness, with a history of alcohol withdrawal seizures, and concerning findings suggestive of potential alcohol withdrawal he will be admitted to the hospital for further evaluation and management. - Lab Data Result diagrams: 07/23/19 18:26 07/23/19 18:26 Lab Results 07/23/19 07/23/19 07/23/19 Range/Units 18:26 18:26 18:26 WBC 5.9 (4.3-11.1) K/mcL RBC 4.53 (4.19-5.50) M/mcL Hgb 14.1 (12.9-16.9) g/dL Hct 42.4 (37.5-50.1) % MCV 93.6 (83.0-100.0) fL MCH 31.1 (28.0-33.3) pg MCHC 33.3 (31.6-35.5) g/dL RDW 11.9 (11.5-14.5) % Plt Count 243 (140-400) K/mcL MPV 8.9 L (9.4-12.4) fL Immature Gran % 0.2 (0-4) % Seg Neutrophils % 85.0 % Lymphocytes % 5.5 % Monocytes % 8.4 % Eosinophils % 0.0 % Basophils % 0.9 % Neutrophils # 5.0 (1.6-8.9) K/mcL Lymphocytes # 0.3 L (0.6-4.6) K/mcL Monocytes # 0.5 (0.0-1.3) K/mcL Eosinophils # 0.0 (0.0-0.6) K/mcL Basophils # 0.1 (0.0-0.2) K/mcL VBG pH (7.32-7.42) pH Units VBG pCO2 (41-51) mmHg VBG pO2 (25-50) mmHg VBG HCO3 (21-27) mEq/L Sodium 136 (136-145) mEq/L Potassium 4.4 (3.5-5.1) mEq/L Chloride 97 L (98-107) mEq/L Carbon Dioxide 29 (23-29) mEq/L BUN 9 (6-20) mg/dL Creatinine 0.74 (0.70-1.30) mg/dL Est GFR ( Amer) > 60 (> 60) Est GFR (Non-Af Amer) > 60 (> 60) BUN/Creatinine Ratio 12 (6-26) Glucose 140 H (70-105) mg/dL Calculated Osmolality 283 (280-300) Calcium 10.0 (8.6-10.3) mg/dL Magnesium (1.6-2.6) mg/dL Total Bilirubin 0.7 (0.3-1.0) mg/dL Direct Bilirubin 0.1 (0.0-0.2) mg/dL Indirect Bilirubin 0.6 (0.0-1.2) mg/dL AST 73 H (13-39) Units/L ALT 87 H (7-52) Units/L Alkaline Phosphatase 73 (34-104) Units/L Troponin I < 0.03 (< 0.04) ng/mL Serum Total Protein 7.7 (6.4-8.9) g/dL Albumin 4.7 (3.5-5.7) g/dL Globulin 3.0 (2.4-3.5) g/dL Albumin/Globulin Ratio 1.6 (1.1-2.2) Beta-Hydroxybutyric Acd 1.35 H (0.02-0.27) mmol/L Ethyl Alcohol < 10 (Less than 10) mg/dL 07/23/19 07/23/19 Range/Units 18:26 18:38 WBC (4.3-11.1) K/mcL RBC (4.19-5.50) M/mcL Hgb (12.9-16.9) g/dL Hct (37.5-50.1) % MCV (83.0-100.0) fL MCH (28.0-33.3) pg MCHC (31.6-35.5) g/dL RDW (11.5-14.5) % Plt Count (140-400) K/mcL MPV (9.4-12.4) fL Immature Gran % (0-4) % Seg Neutrophils % % Lymphocytes % % Monocytes % % Eosinophils % % Basophils % % Neutrophils # (1.6-8.9) K/mcL Lymphocytes # (0.6-4.6) K/mcL Monocytes # (0.0-1.3) K/mcL Eosinophils # (0.0-0.6) K/mcL Basophils # (0.0-0.2) K/mcL VBG pH 7.40 (7.32-7.42) pH Units VBG pCO2 49 (41-51) mmHg VBG pO2 76 H (25-50) mmHg VBG HCO3 30 H (21-27) mEq/L Sodium (136-145) mEq/L Potassium (3.5-5.1) mEq/L Chloride (98-107) mEq/L Carbon Dioxide (23-29) mEq/L BUN (6-20) mg/dL Creatinine (0.70-1.30) mg/dL Est GFR ( Amer) (> 60) Est GFR (Non-Af Amer) (> 60) BUN/Creatinine Ratio (6-26) Glucose (70-105) mg/dL Calculated Osmolality (280-300) Calcium (8.6-10.3) mg/dL Magnesium 2.3 (1.6-2.6) mg/dL Total Bilirubin (0.3-1.0) mg/dL Direct Bilirubin (0.0-0.2) mg/dL Indirect Bilirubin (0.0-1.2) mg/dL AST (13-39) Units/L ALT (7-52) Units/L Alkaline Phosphatase (34-104) Units/L Troponin I (< 0.04) ng/mL Serum Total Protein (6.4-8.9) g/dL Albumin (3.5-5.7) g/dL Globulin (2.4-3.5) g/dL Albumin/Globulin Ratio (1.1-2.2) Beta-Hydroxybutyric Acd (0.02-0.27) mmol/L Ethyl Alcohol (Less than 10) mg/dL
--- NOTE | 2019-07-23 22:58 | Internal Med History&Physical ---
<Derrick Stanford - Last Filed: 07/24/19 00:04> Date of Encounter: 07/24/19 Internal Medicine - H&P: HPI History of present illness: Mr. Fonseca is a 43 year old male Internal Medicine - H&P: Meds No Known Home Drugs 07/23/19 [History] Allergy/AdvReac Type Severity Reaction Status Date / Time No Known Drug Allergies Allergy See Verified 09/19/15 14:25 Comments All Systems PM: A 10-system review of systems was performed and is negative for pertinent findings except as documented above in the HPI. - Constitutional Vitals: Temp Pulse Resp BP Pulse Ox 98.0 F 89 18 168/105 98 07/23/19 23:48 07/23/19 23:48 07/23/19 23:48 07/23/19 23:48 07/23/19 23:48 Internal Med - H&P Results - Labs CBC & Chem 7: 07/23/19 18:26 07/23/19 18:26 Labs: Short CBC 07/23/19 Range/Units 18:26 WBC 5.9 (4.3-11.1) K/mcL Hgb 14.1 (12.9-16.9) g/dL Hct 42.4 (37.5-50.1) % Plt Count 243 (140-400) K/mcL Neutrophils # 5.0 (1.6-8.9) K/mcL BMP 07/23/19 18:26 Sodium 136 Potassium 4.4 Chloride 97 L Carbon Dioxide 29 BUN 9 Creatinine 0.74 Glucose 140 H Calcium 10.0 Cardiac Enzymes 07/23/19 Range/Units 18:26 Troponin I < 0.03 (< 0.04) ng/mL Liver Function 07/23/19 Range/Units 18:26 Total Bilirubin 0.7 (0.3-1.0) mg/dL Direct Bilirubin 0.1 (0.0-0.2) mg/dL AST 73 H (13-39) Units/L ALT 87 H (7-52) Units/L Alkaline Phosphatase 73 (34-104) Units/L Albumin 4.7 (3.5-5.7) g/dL - ABG Interpretation ABG results: 07/23/19 18:38 VBG pH 7.40 VBG pCO2 49 VBG pO2 76 H VBG HCO3 30 H - Impressions ITS Impressions Cervical Spine CT 07/23/19 18:19 IMPRESSION: No acute intracranial abnormality. No acute abnormality of the cervical spine. Mild chronic compression deformities at the superior endplates of C7, T1, T2, T3, and T4 vertebral bodies, stable since the prior study. D/ / Yobani Pittman MD / Yobani Pittman MD Interpreting Provider: Yobani Pittman MD Head CT 07/23/19 18:19 IMPRESSION: No acute intracranial abnormality. No acute abnormality of the cervical spine. Mild chronic compression deformities at the superior endplates of C7, T1, T2, T3, and T4 vertebral bodies, stable since the prior study. D/ / Yobani Pittman MD / Yobani Pittman MD Interpreting Provider: Yobani Pittman MD Chest X-Ray 07/23/19 19:13 IMPRESSION: No acute findings. D/ / 07/23/2019 19:19:35 Robert Love MD / shital Interpreting Provider: Robert Love MD - Time Spent With Patient Total time spent is greater than 50% in coordination of care (as documented) at patient's floor/unit and/or counseling patient: <Alex Westbrook - Last Filed: 07/24/19 02:40> Date of Encounter: 07/24/19 Time of Encounter: 22:55 Internal Medicine - H&P: HPI Admitted From: Emergency Dept History of present illness: Mr. Fonseca is a 43 year old male past medical history of essential hypertension and alcoholism with frequent episodes of withdrawals and alcohol withdrawal seizures in the past most recently hospitalized this facility in 2015 due to alcohol withdrawal seizure. Patient states that he is currently not taking any medications, he denies any other medical/family history, the patient is currently a smoker with admitted alcoholism. Patient presented to [facility] ED today after syncopal episode experienced when he went to the convenience store to buy alcohol. Patient states his last drink was yesterday morning 10 on leaving the convenience store he felt lightheaded and dizzy and passed out, falling and striking his head against the ground, sustaining a cut to his right ear which is sutured in the ED. It is noted by the ED physician that it was related that the patient had seizure-like activity after the fall. In the ED the patient underwent CT scan of the head and cervical spine as well as chest x-ray which did not reveal any acute pathology, patient is noted to have elevations in his glucose to 140, AST and ALT levels 73/87 respectively, and elevated beta hydroxybutyric acid of 1.35. His ethyl alcohol level is less than 10. At this time I will add urinalysis, urine ketones, hepatitis panel, phosphorus, repeat beta hydroxybutyric acid and maintenance fluids as well as consulted nutrition and further urine toxicological screening. Past Med Surg Social Fam HX - Past Medical History Medical history: diabetes, hypertension, seizures Psychiatric history: anxiety - Past Surgical History Surgical History: no surgical history - Social History Smoking Status: Current every day smoker Smokeless Tobacco Status: Yes Alcohol use: heavy, recent Drug use: none - Family History Father Family Member Ethnicity: Non- Living Status: All Systems PM: A 10-system review of systems was performed and is negative for pertinent findings except as documented above in the HPI. - Constitutional Constitutional: falls, malaise, weakness - EENT Eyes: no pain, no other visual disturbances - Cardiovascular Cardiovascular ROS IM: no chest pain - Respiratory Respiratory: no dyspnea - Gastrointestinal Gastrointestinal: no abdominal pain, no nausea, no vomiting - Musculoskeletal Musculoskeletal ROS IM: arthralgias, myalgias (Patient states that he feels sore in his upper back-CT scan shows chronic compression fractures of the upper thoracic segments) - Neurological Neurological ROS: dizziness, headache(s) (Patient has pain in his right ear where he fell striking his head), weakness, no numbness, no paresthesias - Psychiatric Psychiatric: anxiety - Constitutional Vitals: Temp Pulse Resp BP Pulse Ox 97.8 F 107 18 160/104 97 07/23/19 17:27 07/23/19 22:17 07/23/19 22:17 07/23/19 22:17 07/23/19 22:17 General appearance: Present: disheveled, A&O X 3, answers questions appropriately Exam: Upon my initial evaluation in the emergency department the patient's tired but he is arousable to verbal stimuli, he has a bandage around his head and quite related blood noted around his right ear on visual inspection where there has been sutures placed due to a cut he sustained during a fall. His skin is otherwise warm, dry, intact, normal color, pupils are equal, round reactive to light, EOMI, the patient is alert and oriented engaged conversation answering questions appropriately, there are no acute lateralizing signs noted. Patient has good strength in upper and lower extremities equal bilaterally with pulses intact, deep tendon reflexes are unremarkable, cardiopulmonary auscultation is unremarkable, abdomen is soft nontender nondistended. - Eye Eye exam: Present: EOMI, PERRL. Absent: conjunctival injection, scleral icterus - ENT Additional comments: Patient with a sutured cut on his right ear sustained during a fall. - Neck Neck exam general surgery: Present: supple, trachea midline - Respiratory Respiratory exam: Present: CTAB. Absent: accessory muscle use - Cardiovascular Cardiovascular exam: Present: RRR, +S1, +S2. Absent: diastolic murmur, gallop, JVD, rubs, +S3, +S4, systolic murmur - GI/Abdominal GI/Abdominal exam: Present: normal bowel sounds, soft. Absent: distended, firm, guarding, hepatomegaly, rebound, rigid, tenderness - Extremities Exam Extremities exam: Present: normal inspection, warm, radial pulses palpable and symmetrical. Absent: cyanotic, pedal edema, tenderness - Neurological Exam Neurological exam: Present: alert, strengths equal and symetr throughout. Absent: facial droop, speech deficit - Psychiatric Psychiatric exam: Present: flat affect - Skin Skin exam: Present: dry, intact, warm Internal Med - H&P Results - Labs CBC & Chem 7: 07/23/19 18:26 07/23/19 18:26 Labs: Short CBC 07/23/19 Range/Units 18:26 WBC 5.9 (4.3-11.1) K/mcL Hgb 14.1 (12.9-16.9) g/dL Hct 42.4 (37.5-50.1) % Plt Count 243 (140-400) K/mcL Neutrophils # 5.0 (1.6-8.9) K/mcL BMP 07/23/19 18:26 Sodium 136 Potassium 4.4 Chloride 97 L Carbon Dioxide 29 BUN 9 Creatinine 0.74 Glucose 140 H Calcium 10.0 Cardiac Enzymes 07/23/19 Range/Units 18:26 Troponin I < 0.03 (< 0.04) ng/mL Liver Function 07/23/19 Range/Units 18:26 Total Bilirubin 0.7 (0.3-1.0) mg/dL Direct Bilirubin 0.1 (0.0-0.2) mg/dL AST 73 H (13-39) Units/L ALT 87 H (7-52) Units/L Alkaline Phosphatase 73 (34-104) Units/L Albumin 4.7 (3.5-5.7) g/dL - ABG Interpretation ABG results: 07/23/19 18:38 VBG pH 7.40 VBG pCO2 49 VBG pO2 76 H VBG HCO3 30 H - Impressions ITS Impressions Cervical Spine CT 07/23/19 18:19 IMPRESSION: No acute intracranial abnormality. No acute abnormality of the cervical spine. Mild chronic compression deformities at the superior endplates of C7, T1, T2, T3, and T4 vertebral bodies, stable since the prior study. D/ / Yobani Pittman MD / Yobani Pittman MD Interpreting Provider: Yobani Pittman MD Head CT 07/23/19 18:19 IMPRESSION: No acute intracranial abnormality. No acute abnormality of the cervical spine. Mild chronic compression deformities at the superior endplates of C7, T1, T2, T3, and T4 vertebral bodies, stable since the prior study. D/ / Yobani Pittman MD / Yobani Pittman MD Interpreting Provider: Yobani Pittman MD Chest X-Ray 07/23/19 19:13 IMPRESSION: No acute findings. D/ / 07/23/2019 19:19:35 Robert Love MD / shital Interpreting Provider: Robert Love MD - Assessment and Plan (1) Alcohol withdrawal seizure Current Visit: Yes Status: Acute Assessment and plan: History of alcohol withdrawal seizures Last drink was yesterday morning Patient received 1.5 mg of Ativan in the ED Keep patient on strict CIWA protocol and seizure precautions When necessary Ativan for seizure like activity Folic acid and thiamine replacement Consult social media coordinator Qualifiers: Complication of substance-induced condition: with unspecified complication Qualified Code(s): F10.239 - Alcohol dependence with withdrawal, unspecified; R56.9 - Unspecified convulsions (2) Syncope Current Visit: Yes Status: Acute Assessment and plan: Possible alcohol withdrawal seizure Also high suspicion for dehydration and malnutrition See plan as above Continue maintenance fluids Qualifiers: Syncope type: unspecified Qualified Code(s): R55 - Syncope and collapse (3) Dehydration Current Visit: Yes Status: Acute Assessment and plan: Patient received 3 L IV fluids in the ED Continue maintenance fluids at 125 mg/h (4) Elevated beta-hydroxybutyric acid level Current Visit: Yes Status: Acute Assessment and plan: Likely secondary to malnutrition ketosis Trend beta hydroxybutyric acid level Add urinalysis/urine ketones (5) Malnourished Current Visit: Yes Status: Acute Assessment and plan: See plan as listed above Assessment magnesium and phosphorus level Consult nutrition Qualifiers: Malnutrition type: protein-calorie malnutrition Protein-calorie malnutrition severity: moderate Qualified Code(s): E44.0 - Moderate protein- calorie malnutrition (6) Hypertension Current Visit: No Status: Chronic Assessment and plan: Patient has history of untreated hypertension Reports he is not taking his prescribed amlodipine as listed in his chart When necessary Lopressor if needed Qualifiers: Hypertension type: essential hypertension Qualified Code(s): I10 - Essential (primary) hypertension (7) Acute hyperglycemia Current Visit: No Status: Acute Assessment and plan: Patient may have undiagnosed diabetes mellitus Check A1c in the morning POC glucose before meals at bedtime 6 low-dose sliding scale insulin correction (8) Tachycardia Current Visit: Yes Status: Acute Assessment and plan: Patient with history of persistent tachycardia Continue to monitor for response to fluid status When necessary Lopressor if needed (9) Elevated liver enzymes Current Visit: Yes Status: Acute Assessment and plan: Patient's AST/ALT are 73 and 87 respectively Does not appear to be alcoholic hepatitis We will add hepatitis panel Continue to monitor (10) DVT prophylaxis Current Visit: Yes Status: Acute Assessment and plan: Hold anticoagulation as patient is status post fall with head injury EPCDs for DVT prophylaxis - Time Spent With Patient Total time spent is greater than 50% in coordination of care (as documented) at patient's floor/unit and/or counseling patient: <Yimi Nunez - Last Filed: 07/24/19 08:17> Date of Encounter: 07/23/19 Internal Medicine - H&P: HPI History of present illness: Mr. Fonseca is a 43 year old male All Systems PM: A 10-system review of systems was performed and is negative for pertinent findings except as documented above in the HPI. - Constitutional Vitals: Temp Pulse Resp BP Pulse Ox 98.3 F 92 16 178/126 97 07/24/19 06:54 07/24/19 03:02 07/24/19 06:54 07/24/19 06:54 07/24/19 06:54 Internal Med - H&P Results - Labs CBC & Chem 7: 07/23/19 18:26 07/23/19 18:26 Labs: Short CBC 07/23/19 Range/Units 18:26 WBC 5.9 (4.3-11.1) K/mcL Hgb 14.1 (12.9-16.9) g/dL Hct 42.4 (37.5-50.1) % Plt Count 243 (140-400) K/mcL Neutrophils # 5.0 (1.6-8.9) K/mcL BMP 07/23/19 18:26 Sodium 136 Potassium 4.4 Chloride 97 L Carbon Dioxide 29 BUN 9 Creatinine 0.74 Glucose 140 H Calcium 10.0 Cardiac Enzymes 07/23/19 Range/Units 18:26 Troponin I < 0.03 (< 0.04) ng/mL Liver Function 07/23/19 Range/Units 18:26 Total Bilirubin 0.7 (0.3-1.0) mg/dL Direct Bilirubin 0.1 (0.0-0.2) mg/dL AST 73 H (13-39) Units/L ALT 87 H (7-52) Units/L Alkaline Phosphatase 73 (34-104) Units/L Albumin 4.7 (3.5-5.7) g/dL - ABG Interpretation ABG results: 07/23/19 18:38 VBG pH 7.40 VBG pCO2 49 VBG pO2 76 H VBG HCO3 30 H - Impressions ITS Impressions Cervical Spine CT 07/23/19 18:19 IMPRESSION: No acute intracranial abnormality. No acute abnormality of the cervical spine. Mild chronic compression deformities at the superior endplates of C7, T1, T2, T3, and T4 vertebral bodies, stable since the prior study. D/ / Yobani Pittman MD / Yobani Pittman MD Interpreting Provider: Yobani Pittman MD Head CT 07/23/19 18:19 IMPRESSION: No acute intracranial abnormality. No acute abnormality of the cervical spine. Mild chronic compression deformities at the superior endplates of C7, T1, T2, T3, and T4 vertebral bodies, stable since the prior study. D/ / Yobani Pittman MD / Yobani Pittman MD Interpreting Provider: Yobani Pittman MD Chest X-Ray 07/23/19 19:13 IMPRESSION: No acute findings. D/ / 07/23/2019 19:19:35 Robert Love MD / shital Interpreting Provider: Robert Love MD - Time Spent With Patient Total time spent is greater than 50% in coordination of care (as documented) at patient's floor/unit and/or counseling patient: - Attending Attestation Resident not incorrectly signed by ER attending. I saw and evaluated the patient. I reviewed the residents note, performed my own physical examination and agree with findings and plan as documented in the residents note. Patient seen and examined on 07/24/19 at 0630am. Patient had apparently a seizure-like episode earlier today, similar to previous episodes. History of alcohol withdrawal seizures. Currently on CIMT protocol. We will continue to monitor.
[2019-07-23] MEDS ORDERED: *HR* LORazepam 2 MG/ML VIAL IVP PRN ×2 (23:14)
[2019-07-23] MEDS ORDERED: *HR* Metoprolol 5 MG/5 ML VIAL IVP ONE (23:28)
[2019-07-24] MEDS: Thiamine (B-1) 100 MG TABLET PO SCH ×2 (00:11→07:51)
[2019-07-24] MEDS: Folic Acid 1 MG TABLET PO SCH ×2 (00:11→07:51)
[2019-07-24] MEDS: 0.9 % Sodium Chloride 1,000 ML IVC SCH ×4 (00:15→23:54)
[2019-07-24 00:37] LABS: Acetaminophen < 10 mcg/mL (10-20); Salicylate < 2.5 mg/dL (15.0-30.0)
[2019-07-24 03:38] LABS: Hepatitis B Surface Antigen Nonreactive (Nonreactive)
[2019-07-24 04:08] LABS: Hepatitis A Antibody IgM Nonreactive (Nonreactive); Hepatitis B Core IgM Nonreactive (Nonreactive); Hepatitis C Virus Antibody Nonreactive (Nonreactive)
[2019-07-24 08:18] LABS: Bilirubin,Urine Negative (Negative); Blood,Urine Negative (Negative); Clarity,Urine Clear (Clear); Color,Urine Yellow (Yellow); Glucose,Urine (UA) 250 mg/dL (Normal); Ketones,Urine Trace mg/dL (Negative); Leukocyte Esterase,Urine Negative (Negative); Nitrite,Urine Negative (Negative); Protein,Urine Trace mg/dL (Neg-Trace); Specific Gravity,Urine 1.018 (1.010-1.025); Urobilinogen,Urine Normal (Normal)
[2019-07-24 08:54] LABS: Amphetamine Screen,Urine Negative ng/mL (Cutoff=1000); Barbiturate Screen,Urine Negative ng/mL (Cutoff=200); Benzodiazepines Screen,Urine Negative ng/mL (Cutoff=200); Cannabinoid Screen,Urine Negative ng/mL (Cutoff = 50); Cocaine Screen,Urine Negative ng/mL (Cutoff= 300); Opiate Screen,Urine Negative ng/mL (Cutoff=300); Phencyclidine Screen,Urine Negative ng/mL (Cutoff=25)
[2019-07-24 09:23] LABS: Estimated Average Glucose 100 mg/dl
--- NOTE | 2019-07-24 13:38 | Internal Med Progress Note ---
Hospitalist Progress Note - Encounter Date of Encounter: 07/24/19 Time of Encounter: 10:30 - Subjective Interval History: Mr. Fonseca is a 43 year old male past medical history of essential hypertension, alcoholism and alcohol withdrawal seizure patient presented to ER after syncopal episode experienced when he went to the convenience store to buy alcohol. Patient stated his last drink was yesterday morning 10 on leaving the convenience store he felt lightheaded and dizzy and passed out, falling and striking his head against the ground, sustaining a cut to his right ear which is sutured in the ED. In the ED the patient underwent CT scan of the head and cervical spine as well as chest x-ray which did not reveal any acute pathology. He was admitted in the hospital and placed him on cardiac exercise physiologist. Also patient was placed on seizure precautions. He denied anymore syncopal episode/seizure activity. Patient seems to be going through active alcohol withdrawal symptoms / DTs now. - Exam Vitals: Temp Pulse Resp BP Pulse Ox 97.8 F 112 16 165/102 97 07/24/19 12:16 07/24/19 12:20 07/24/19 12:16 07/24/19 12:20 07/24/19 12:16 Exam: Gen: Alert, awake, Oriented to time,place and person looks weak and lethargic Chest: Diminished breath sounds B/L, No wheezing, No crackles, No rales Heart: S1S2+ tachycardia No murmurs Abd: Soft, NT, BS +, No organomegaly Ext: No edema, pulses are palpable, No calf tenderness Neuro : No acute focal neuro deficits noticed Skin: No rash. - Assessment and Plan (1) Alcohol withdrawal Current Visit: No Status: Acute Assessment and Plan: He is going through active DT's now Cont on CIWA scale Started him on scheduled Librium 50mg QID continue symptomatic and supportive care continue thiamine and folic acid (2) Syncope Current Visit: Yes Status: Acute Assessment and Plan: Most likely vasovagal/ortho static Cont on tele Will check 2D Echo (3) Alcohol withdrawal seizure Current Visit: Yes Status: Acute Assessment and Plan: Stable now no more seizure activity no need of anti convulsants now cont on tele cont seizure precautions Ordered EEG Cont care for DT's (4) Dehydration Current Visit: Yes Status: Acute Assessment and Plan: on IVF (5) Hypertension Current Visit: No Status: Chronic Assessment and Plan: Fairly controlled due to alcohol withdrawal symptoms / DT's continue IV hydralazine as needed also started him on Norvasc 10 mg PO daily (6) Tobacco dependence Current Visit: Yes Status: Acute Assessment and Plan: Counseled to quit smoking placed on nicotine patch - Time Spent with Patient Total time spent is greater than 50% in coordination of care (as documented) at patient's floor/unit and/or counseling patient: Internal Medicine: Result - Labs CBC & Chem 7: 07/23/19 18:26 07/23/19 18:26 Labs: Short CBC 07/23/19 Range/Units 18:26 WBC 5.9 (4.3-11.1) K/mcL Hgb 14.1 (12.9-16.9) g/dL Hct 42.4 (37.5-50.1) % Plt Count 243 (140-400) K/mcL Neutrophils # 5.0 (1.6-8.9) K/mcL BMP 07/23/19 18:26 Sodium 136 Potassium 4.4 Chloride 97 L Carbon Dioxide 29 BUN 9 Creatinine 0.74 Glucose 140 H Calcium 10.0 Cardiac Enzymes 07/23/19 Range/Units 18:26 Troponin I < 0.03 (< 0.04) ng/mL Liver Function 07/23/19 Range/Units 18:26 Total Bilirubin 0.7 (0.3-1.0) mg/dL Direct Bilirubin 0.1 (0.0-0.2) mg/dL AST 73 H (13-39) Units/L ALT 87 H (7-52) Units/L Alkaline Phosphatase 73 (34-104) Units/L Albumin 4.7 (3.5-5.7) g/dL Urine 07/24/19 Range/Units 08:03 Urine Color Yellow (Yellow) Urine Clarity Clear (Clear) Urine pH 7.0 (5.0-8.0) pH Units Ur Specific [place] 1.018 (1.010-1.025) Urine Protein Trace (Neg-Trace) mg/dL Urine Glucose (UA) 250 H (Normal) mg/dL - Impressions Impressions Cervical Spine CT 07/23/19 18:19 IMPRESSION: No acute intracranial abnormality. No acute abnormality of the cervical spine. Mild chronic compression deformities at the superior endplates of C7, T1, T2, T3, and T4 vertebral bodies, stable since the prior study. D/ / Yobani Pittman MD / Yobani Pittman MD Interpreting Provider: Yobani Pittman MD Head CT 07/23/19 18:19 IMPRESSION: No acute intracranial abnormality. No acute abnormality of the cervical spine. Mild chronic compression deformities at the superior endplates of C7, T1, T2, T3, and T4 vertebral bodies, stable since the prior study. D/ / Yobani Pittman MD / Yobani Pittman MD Interpreting Provider: Yobani Pittman MD Chest X-Ray 07/23/19 19:13 IMPRESSION: No acute findings. D/ / 07/23/2019 19:19:35 Robert Love MD / shital Interpreting Provider: Robert Lvoe MD Consult Discharge Plan - Plan Referrals: NONE,PCP [Primary Care Provider] - (1) Alcohol withdrawal Qualifiers: Complication of substance-induced condition: uncomplicated Qualified Code(s): F10.230 - Alcohol dependence with withdrawal, uncomplicated (2) Syncope Qualifiers: Syncope type: unspecified Qualified Code(s): R55 - Syncope and collapse (3) Alcohol withdrawal seizure Qualifiers: Complication of substance-induced condition: with unspecified complication Qualified Code(s): F10.239 - Alcohol dependence with withdrawal, unspecified; R56.9 - Unspecified convulsions (5) Hypertension Qualifiers: Hypertension type: essential hypertension Qualified Code(s): I10 - Essential (primary) hypertension
[2019-07-24] MEDS: amLODIPine 5 MG TABLET PO SCH (15:14)
[2019-07-24] MEDS: Nicotine 21 MG PATCH.TD24 TD SCH (15:14)
[2019-07-24] MEDS: *HR* LORazepam 2 MG/ML VIAL IVP PRN (15:16)
[2019-07-25 02:13] LABS: Hematocrit 40.4 % (37.5-50.1); Mean Corpuscular HGB Conc 32.2 g/dL (31.6-35.5); Mean Corpuscular Hemoglobin 31.6 pg (28.0-33.3); Mean Corpuscular Volume 98.1 fL (83.0-100.0); Mean Platelet Volume 10.1 fL (9.4-12.4); Platelet Count 204 K/mcL (140-400); Red Blood Count 4.12 M/mcL (4.19-5.50); Red Cell Distribution Width 11.7 % (11.5-14.5); White Blood Count 4.9 K/mcL (4.3-11.1)
[2019-07-25 02:31] LABS: Alanine Aminotransferase 67 Units/L (7-52); Albumin 4.1 g/dL (3.5-5.7); Albumin/Globulin Ratio 1.7 (1.1-2.2); Alkaline Phosphatase 62 Units/L (34-104); Aspartate Amino Transferase 65 Units/L (13-39); BUN/Creatinine Ratio 10 (6-26); Bilirubin,Total 0.4 mg/dL (0.3-1.0); Blood Urea Nitrogen 7 mg/dL (6-20); Calcium 8.8 mg/dL (8.6-10.3); Carbon Dioxide 27 mEq/L (23-29); Chloride 103 mEq/L (98-107); Globulin 2.4 g/dL (2.4-3.5); Glucose 90 mg/dL (70-105); Magnesium 1.9 mg/dL (1.6-2.6); Osmolality,Calculated 284 (280-300); Potassium 3.2 mEq/L (3.5-5.1); Sodium 138 mEq/L (136-145); Total Protein 6.5 g/dL (6.4-8.9); eGFR For African Americans > 60 (> 60); eGFR For Non-African Americans > 60 (> 60)
--- NOTE | 2019-07-25 06:40 | Electrocardiograph Report ---
[facility] Test Date: 2019-07-23 Pat Name: Yakov Fonseca Department: [id number] Room: 3B33 Gender: M Staging Technician: : 1975 Requested By: Derrick Stanford Order Number: [id number] Reading MD: Titi Tinsley Measurements Intervals [place] Rate: 117 P: 53 LA: 154 QRS: 90 QRSD: 102 T: 49 QT: 327 QTc: 457 Interpretive Statements Sinus tachycardia Electronically Signed On 07-25-2019 6:38:21 EDT by Titi Tinsley
[2019-07-25] MEDS: amLODIPine 5 MG TABLET PO SCH (08:17)
[2019-07-25] MEDS: Folic Acid 1 MG TABLET PO SCH (08:17)
[2019-07-25] MEDS: Thiamine (B-1) 100 MG TABLET PO SCH (08:17)
[2019-07-25] MEDS: Nicotine 21 MG PATCH.TD24 TD SCH (08:17)
[2019-07-25] MEDS: 0.9 % Sodium Chloride 1,000 ML IVC SCH (08:18)
--- NOTE | 2019-07-25 10:04 | Internal Med Progress Note ---
Hospitalist Progress Note - Encounter Date of Encounter: 07/25/19 Time of Encounter: 10:02 - Subjective Interval History: Mr. Fonseca is a 43 year old male past medical history of essential hypertension, alcoholism and alcohol withdrawal seizure patient presented to ER after syncopal episode experienced when he went to the convenience store to buy alcohol. Patient stated his last drink was yesterday morning 10 on leaving the convenience store he felt lightheaded and dizzy and passed out, falling and striking his head against the ground, sustaining a cut to his right ear which is sutured in the ED. In the ED the patient underwent CT scan of the head and cervical spine as well as chest x-ray which did not reveal any acute pathology. He was admitted in the hospital and placed him on playground monitor. Also patient was placed on seizure precautions. He denied anymore syncopal episode/seizure activity. Patient seems to be going through active alcohol withdrawal symptoms / DTs now. - Exam Vitals: Temp Pulse Resp BP Pulse Ox 98.1 F 94 16 146/102 98 07/25/19 06:59 07/25/19 06:59 07/25/19 06:59 07/25/19 06:59 07/25/19 06:59 Exam: Gen: Alert, awake, Oriented to time,place and person looks weak and lethargic Chest: Diminished breath sounds B/L, No wheezing, No crackles, No rales Heart: S1S2+ tachycardia No murmurs Abd: Soft, NT, BS +, No organomegaly Ext: No edema, pulses are palpable, No calf tenderness Neuro : No acute focal neuro deficits noticed Skin: No rash. - Assessment and Plan (1) Alcohol withdrawal Current Visit: No Status: Acute Assessment and Plan: He is going through active DT's now Cont on CIWA scale Started him on scheduled Librium 50mg QID continue symptomatic and supportive care continue thiamine and folic acid (2) Syncope Current Visit: Yes Status: Acute Assessment and Plan: Most likely vasovagal/ortho static Cont on tele 2D Echo unremarkable. (3) Alcohol withdrawal seizure Current Visit: Yes Status: Acute Assessment and Plan: Stable now no more seizure activity cont on tele cont seizure precautions Ordered EEG Cont care for DT's (4) Dehydration Current Visit: Yes Status: Resolved Assessment and Plan: on IVF (5) Hypertension Current Visit: No Status: Chronic Assessment and Plan: Fairly controlled due to alcohol withdrawal symptoms / DT's continue IV hydralazine as needed also started him on Norvasc 10 mg PO daily (6) Tobacco dependence Current Visit: Yes Status: Acute Assessment and Plan: Counseled to quit smoking placed on nicotine patch - Time Spent with Patient Total time spent is greater than 50% in coordination of care (as documented) at patient's floor/unit and/or counseling patient: Greater than 35 minutes Plan of Care Discussed with: patient Internal Medicine: Result - Labs CBC & Chem 7: 07/25/19 01:03 07/25/19 01:03 Labs: Short CBC 07/25/19 Range/Units 01:03 WBC 4.9 (4.3-11.1) K/mcL Hgb 13.0 (12.9-16.9) g/dL Hct 40.4 (37.5-50.1) % Plt Count 204 (140-400) K/mcL BMP 07/25/19 01:03 Sodium 138 Potassium 3.2 L Chloride 103 Carbon Dioxide 27 BUN 7 Creatinine 0.69 L Glucose 90 Calcium 8.8 Liver Function 07/25/19 Range/Units 01:03 Total Bilirubin 0.4 (0.3-1.0) mg/dL AST 65 H (13-39) Units/L ALT 67 H (7-52) Units/L Alkaline Phosphatase 62 (34-104) Units/L Albumin 4.1 (3.5-5.7) g/dL - Impressions Impressions Echocardiogram 07/24/19 23:07 Impressions: LVEF 65%. Normal LV chamber size, wall thickness and function. Indeterminate diastolic function. Normal right ventricular structure and function. Unable to estimate RVSP due to lack of TR jet. No significant valvular dysfunction. Left Ventricular Wall Motion: Rest Echo Findings All wall segments showed normal motion. Findings: Study Quality * Technically adequate exam. ECG Findings * Sinus tachycardia. Left Ventricle * LVEF 65%. * Normal LV chamber size, wall thickness and function. * Indeterminate diastolic function. Right Ventricle * Normal right ventricular structure and function. Left Atrium * Normal left atrial size. Right Atrium * Normal right atrial size. Interatrial Septum * Interatrial septum not well evaluated. Aortic Valve * Aortic valve not well visualized. * No aortic regurgitation. * No aortic stenosis. Mitral Valve * Normal mitral valve structure and function. * No mitral stenosis. * No mitral regurgitation. Tricuspid Valve * Normal tricuspid valve structure and function. * No tricuspid regurgitation. * Unable to estimate RVSP due to lack of TR jet. Pulmonic Valve * Normal pulmonic valve structure and function. * No pulmonic regurgitation. Aorta * Normally sized aortic root. Pericardium * The pericardium appears normal. IVC * Normal IVC dimensions and inspiratory collapse. Pulmonary Artery * Normal visualized portions of the main pulmonary artery. Consult Discharge Plan - Plan Referrals: Danisha Wade DO [Resident] - 07/30/19 2:00 pm (1) Alcohol withdrawal Qualifiers: Complication of substance-induced condition: uncomplicated Qualified Code(s): F10.230 - Alcohol dependence with withdrawal, uncomplicated (2) Syncope Qualifiers: Syncope type: unspecified Qualified Code(s): R55 - Syncope and collapse (3) Alcohol withdrawal seizure Qualifiers: Complication of substance-induced condition: with unspecified complication Qualified Code(s): F10.239 - Alcohol dependence with withdrawal, unspecified; R56.9 - Unspecified convulsions (5) Hypertension Qualifiers: Hypertension type: essential hypertension Qualified Code(s): I10 - Essential (primary) hypertension
--- NOTE | 2019-07-25 14:16 | Neurology - Consult Note ---
Date of Encounter: 07/25/19 Time of Encounter: 09:40 Assessment and Plan (1) Alcohol withdrawal seizure Current Visit: Yes Status: Acute This patient who has an history of heavy alcohol abuse and also has an history of alcohol withdrawal seizures in the past had few seizures off and on all of them are related to the use of the alcohol. Currently back to his baseline no focal motor deficit on neurological examination CT of the head and CT of the cervical spine is been negative At this time I would suggest getting an EEG would not recommend starting him on any anticonvulsive medication unless they are is abnormality noted on EEG significant compliance issues also reported not been taking his blood pressure medications either. Imaging studies negative , as nonfocal exam no need for any MRI studies at this time Continue on withdrawal precautions may benefit from thiamine Suggested that he should refrain from drinking otherwise he would continue to have these seizure-like of events. Recommend that he should not be driving or operating any heavy machinery Stable from neurology standpoint okay to discharge if EEG is negative Qualifiers: Complication of substance-induced condition: with unspecified complication Qualified Code(s): F10.239 - Alcohol dependence with withdrawal, unspecified; R56.9 - Unspecified convulsions (2) ETOH abuse Current Visit: Yes Status: Acute (3) Syncope Current Visit: Yes Status: Acute Qualifiers: Syncope type: unspecified Qualified Code(s): R55 - Syncope and collapse History of Present Illness HPI: Mr. Fonseca is a 43 year old male admitted with seizure-like of activity , according to the patient he had a history of seizures related to alcohol withdrawal and he had several of them in the past .The patient states he was at the convenience store he reports having drank 2 beers today but he had 2 full beers brought with him. Apparently was found laying on the ground in the convenience store and paramedics were called. The patient states he recalls feeling dizzy and then he thinks he might a passed out. He states he did not have any headache he had no chest pain no shortness of breath no palpitations states he has felt lightheaded like he might pass out. He states that he is not sure if he had a seizure or not he did not bite his tongue he did not lose continence he states he still feels weak and dizzy but again denies any significant pain apart from in his right ear where he fell and cut it open. He is supposed take medication for hypertension but does not he also status post take some medications for anxiety but does not know what this medication is and has not been taking it. Past Med Surg Social Fam HX - Past Medical History Medical history: diabetes, hypertension, seizures Psychiatric history: anxiety - Past Surgical History Surgical History: no surgical history - Social History Smoking Status: Current every day smoker Smokeless Tobacco Status: Yes Alcohol use: heavy, recent Drug use: none - Family History Father Family Member Ethnicity: Non- Living Status: Medications and Allergies No Known Home Drugs 07/23/19 [History] Allergy/AdvReac Type Severity Reaction Status Date / Time No Known Drug Allergies Allergy See Verified 09/19/15 14:25 Comments All Systems: The remainder of the systems were reviewed and are negative Physical Examination - Vital Signs Vital Signs: Initial Vital Signs Temp Pulse Resp BP Pulse Ox 97.8 F 119 15 172/121 97 07/23/19 17:27 07/23/19 17:27 07/23/19 17:27 07/23/19 17:27 07/23/19 17:27 - Exam Exam: GENERAL: Comfortable in no acute distress HEENT: Normal LUNGS: CTA HEART: RRR, S1 S2 Audible, no murmur EXTREMITIES: No Pedal edema. DETAILED NEUROLOGICAL EXAMINATION: MENTAL STATUS: Oriented to person, place, date and situation. Memory: knows the President, Aware of recent events Recent Memory Intact, Attention span is normal Cranial Nerve Examination: CN - II: Visual Acuity, Field of Vision Normal, Fundus examination: No disk edema, Pupils- size shape reaction to light and accommodation: All normal. CN III, IV, : External ocular movements were intact, Pupils were reactive, Nodrooping of the eyelids CN V: Sensation over the face to light touch and pinprick all normal. Corneal reflexes not tested, jaw jerk normal. CN VII: No facial asymmetry, no flattening of nasolabial folds, no difficulty in closing the eyes, no loss of forehead wrinkles, no difficulty in eye-closure, frowning raising eyebrows. CNVIII: No significant hearing loss CN IX, X: Uvula centralized not deviated, Gag reflex: Not tested CN X1: Sternocleidomastoid, trapezius, normal or evidence of any weakness. CN X11: No Dysarthria, no wasting or fibrilation f tongue muscles, no deviation, tongue muscle strength normal. Motor examination: No hypertrophy, tone was normal, power grade 0-5 Upper limbs Proximal- No difficulty in lifting the arms above the head. Distal- No weakness in distal muscles On formal testing 5/5 all over Lower limbs On formal testing 5/5 all over Coordination: [id number] normal. Target pursuit normal finger tapping normal, Rapid alternating moment of wrist normal Sensory system: Superficial sensations- Touch normal. Pain- Pinprick, Temperature all normal, Deep sensation normal, Joint position sense normal. Cortical sensation, Tactile discrimination, localization and extinction all normal. Deep tendon reflexes. Symmetrical bilateral, No evidence of Babinski. No sign of meningeal irritation Gait Examination: Deferred - Constitutional General appearance: comfortable Results - Laboratory Findings CBC and BMP: 07/25/19 01:03 07/25/19 01:03 Abnormal lab findings: Abnormal lab results RBC 4.12 M/mcL (4.19-5.50) L 07/25/19 01:03 MPV 8.9 fL (9.4-12.4) L 07/23/19 18:26 Lymphocytes # 0.3 K/mcL (0.6-4.6) L 07/23/19 18:26 VBG pO2 76 mmHg (25-50) H 07/23/19 18:38 VBG HCO3 30 mEq/L (21-27) H 07/23/19 18:38 Potassium 3.2 mEq/L (3.5-5.1) L 07/25/19 01:03 Chloride 97 mEq/L (98-107) L 07/23/19 18:26 Creatinine 0.69 mg/dL (0.70-1.30) L 07/25/19 01:03 Glucose 140 mg/dL (70-105) H 07/23/19 18:26 POC Glucose 113 mg/dL (70-99) H 07/24/19 20:08 AST 65 Units/L (13-39) H 07/25/19 01:03 ALT 67 Units/L (7-52) H 07/25/19 01:03 Beta-Hydroxybutyric Acd 0.34 mmol/L (0.02-0.27) H 07/24/19 05:49 Urine Glucose (UA) 250 mg/dL (Normal) H 07/24/19 08:03 Urine Ketones Trace mg/dL (Negative) H 07/24/19 08:03 Salicylates < 2.5 mg/dL (15.0-30.0) L 07/23/19 23:58 Acetaminophen < 10 mcg/mL (10-20) L 07/23/19 23:58 - Diagnostic Findings Additional findings: CT of the head and cervical spine reported as negative Consult Discharge Plan - Plan Referrals: Danisha Wade DO [Resident] - 07/30/19 2:00 pm
[2019-07-25] MEDS ORDERED: Thiamine (B-1) 100 MG in 0.9 % Sodium Chloride 50 ML IVPB ONE (14:20)
[2019-07-25] MEDS: *HR* LORazepam 2 MG/ML VIAL IVP PRN (17:24)
[2019-07-26 01:23] LABS: Hematocrit 40.8 % (37.5-50.1); Hemoglobin 13.3 g/dL (12.9-16.9); Mean Corpuscular HGB Conc 32.6 g/dL (31.6-35.5); Mean Corpuscular Hemoglobin 31.8 pg (28.0-33.3); Mean Corpuscular Volume 97.6 fL (83.0-100.0); Mean Platelet Volume 9.4 fL (9.4-12.4); Platelet Count 174 K/mcL (140-400); Red Blood Count 4.18 M/mcL (4.19-5.50); Red Cell Distribution Width 11.6 % (11.5-14.5); White Blood Count 4.2 K/mcL (4.3-11.1)
[2019-07-26 01:43] LABS: BUN/Creatinine Ratio 15 (6-26); Blood Urea Nitrogen 11 mg/dL (6-20); Calcium 9.5 mg/dL (8.6-10.3); Carbon Dioxide 26 mEq/L (23-29); Chloride 101 mEq/L (98-107); Glucose 106 mg/dL (70-105); Osmolality,Calculated 284 (280-300); Potassium 3.6 mEq/L (3.5-5.1); Sodium 137 mEq/L (136-145); eGFR For African Americans > 60 (> 60); eGFR For Non-African Americans > 60 (> 60)
[2019-07-26] MEDS: amLODIPine 5 MG TABLET PO SCH (09:40)
[2019-07-26] MEDS: Thiamine (B-1) 100 MG TABLET PO SCH (09:40)
[2019-07-26] MEDS: Nicotine 21 MG PATCH.TD24 TD SCH (09:40)
[2019-07-26] MEDS: Folic Acid 1 MG TABLET PO SCH (09:40)
--- NOTE | 2019-07-26 10:09 | Internal Med Progress Note ---
Hospitalist Progress Note - Encounter Date of Encounter: 07/26/19 Time of Encounter: 10:07 - Subjective Interval History: Mr. Fonseca is a 43 year old male past medical history of essential hypertension, alcoholism and alcohol withdrawal seizure patient presented to ER after syncopal episode experienced when he went to the convenience store to buy alcohol. Patient stated his last drink was yesterday morning 10 on leaving the convenience store he felt lightheaded and dizzy and passed out, falling and striking his head against the ground, sustaining a cut to his right ear which is sutured in the ED. In the ED the patient underwent CT scan of the head and cervical spine as well as chest x-ray which did not reveal any acute pathology. He was admitted in the hospital and placed him on hall monitor. Also patient was placed on seizure precautions. He denied anymore syncopal episode/seizure activity. Patient seems to be going through active alcohol withdrawal symptoms / DTs now. Librium started. Pt seen and examined in the room. He reported he is determined to be sober and wanted to join AA. He is calm and not anxious. - Exam Vitals: Temp Pulse Resp BP Pulse Ox 97.9 F 104 16 118/78 98 07/26/19 07:16 07/26/19 07:16 07/26/19 07:16 07/26/19 07:16 07/26/19 07:16 Exam: Gen: Alert, awake, Oriented to time,place and person looks weak and lethargic Chest: Diminished breath sounds B/L, No wheezing, No crackles, No rales Heart: S1S2+ tachycardia No murmurs Abd: Soft, NT, BS +, No organomegaly Ext: No edema, pulses are palpable, No calf tenderness Neuro : No acute focal neuro deficits noticed Skin: No rash. - Assessment and Plan (1) Alcohol withdrawal Current Visit: Yes Status: Acute Assessment and Plan: Cont on CIWA scale Started him on scheduled Librium 50mg QID continue symptomatic and supportive care continue thiamine and folic acid. Doing better today. (2) Syncope Current Visit: Yes Status: Acute Assessment and Plan: Most likely vasovagal/ortho static Cont on tele 2D Echo unremarkable. (3) Alcohol withdrawal seizure Current Visit: Yes Status: Acute Assessment and Plan: Stable now no more seizure activity cont on tele cont seizure precautions Ordered EEG Cont care for DT's Neuro following, appreciate help. (4) Dehydration Current Visit: Yes Status: Resolved Assessment and Plan: resolved. (5) Hypertension Current Visit: No Status: Chronic Assessment and Plan: Fairly controlled due to alcohol withdrawal symptoms / DT's continue IV hydralazine as needed also started him on Norvasc 10 mg PO daily (6) Tobacco dependence Current Visit: Yes Status: Acute Assessment and Plan: Counseled to quit smoking placed on nicotine patch DVT Prophylaxis: SCDs. - Time Spent with Patient Total time spent is greater than 50% in coordination of care (as documented) at patient's floor/unit and/or counseling patient: Greater than 35 minutes Plan of Care Discussed with: patient Internal Medicine: Result - Labs CBC & Chem 7: 07/26/19 01:10 07/26/19 01:10 Labs: Short CBC 07/26/19 Range/Units 01:10 WBC 4.2 L (4.3-11.1) K/mcL Hgb 13.3 (12.9-16.9) g/dL Hct 40.8 (37.5-50.1) % Plt Count 174 (140-400) K/mcL BMP 07/26/19 01:10 Sodium 137 Potassium 3.6 Chloride 101 Carbon Dioxide 26 BUN 11 Creatinine 0.71 Glucose 106 H Calcium 9.5 Consult Discharge Plan - Plan Referrals: Danisha Wade DO [Resident] - 07/30/19 2:00 pm (1) Alcohol withdrawal Qualifiers: Complication of substance-induced condition: uncomplicated Qualified Code(s): F10.230 - Alcohol dependence with withdrawal, uncomplicated (2) Syncope Qualifiers: Syncope type: unspecified Qualified Code(s): R55 - Syncope and collapse (3) Alcohol withdrawal seizure Qualifiers: Complication of substance-induced condition: with unspecified complication Qualified Code(s): F10.239 - Alcohol dependence with withdrawal, unspecified; R56.9 - Unspecified convulsions (5) Hypertension Qualifiers: Hypertension type: essential hypertension Qualified Code(s): I10 - Essential (primary) hypertension
[2019-07-26] MEDS: Acetaminophen 325 MG TABLET PO PRN ×2 (16:10→22:58)
[2019-07-26] MEDS ORDERED: Nicotine 21 MG PATCH.TD24 TD SCH (21:25)
[2019-07-27 02:38] LABS: Hematocrit 40.2 % (37.5-50.1); Hemoglobin 13.3 g/dL (12.9-16.9); Mean Corpuscular HGB Conc 33.1 g/dL (31.6-35.5); Mean Corpuscular Volume 96.6 fL (83.0-100.0); Mean Platelet Volume 9.8 fL (9.4-12.4); Platelet Count 187 K/mcL (140-400); Red Blood Count 4.16 M/mcL (4.19-5.50); Red Cell Distribution Width 11.7 % (11.5-14.5); White Blood Count 5.1 K/mcL (4.3-11.1)
[2019-07-27 02:53] LABS: BUN/Creatinine Ratio 19 (6-26); Blood Urea Nitrogen 18 mg/dL (6-20); Calcium 9.8 mg/dL (8.6-10.3); Carbon Dioxide 26 mEq/L (23-29); Chloride 103 mEq/L (98-107); Glucose 120 mg/dL (70-105); Osmolality,Calculated 289 (280-300); Potassium 3.2 mEq/L (3.5-5.1); Sodium 138 mEq/L (136-145); eGFR For African Americans > 60 (> 60); eGFR For Non-African Americans > 60 (> 60)
[2019-07-27 04:07] LABS: Magnesium 1.9 mg/dL (1.6-2.6)
[2019-07-27] MEDS: Thiamine (B-1) 100 MG TABLET PO SCH (08:21)
[2019-07-27] MEDS: Folic Acid 1 MG TABLET PO SCH (08:21)
[2019-07-27] MEDS: amLODIPine 5 MG TABLET PO SCH (08:21)
--- NOTE | 2019-07-27 08:43 | EEG/EMG/Oth Biometrics Report ---
EEG Procedure Report Date of procedure: 07/25/19 EEG Procedure: Routine EEG Procedure Note: This is a routine 21 channel digital EEG performed utilizing 10- 20 international electrode placement system. FINDINGS: Patient has a predominant waking background frequency that is average voltage 8 to 10 Hertz alpha activity in the posterior region, normal amplitude symmetrical over the both hemispheres reactive to eyes opening and closing record continued to show alpha activity intermixed with some theta off and on, no abnormal activity recorded, predominantly no evidence of any spike wave discharges or any lateralizing abnormalities, Photic stimulation and hyperventilation did not produce any convulsive response. Intermittent EMG artifacts were noted. Stage II sleep was not achieved. Significant be the activity noted predominantly in the frontal leads during the study nonspecific pattern mostly related to the medication side effect Impression: low amplitude Normal awake drowsy electroencephalogram, with the exception of beta activity which is a nonspecific pattern mostly seen in patient with benzodiazepine and barbiturates use. No epileptiform discharges or any other paroxysmal activities noted. ( Please note that normal EEG does not exclude the diagnosis of seizures or epilepsy, clinical correlation is suggested)
[2019-07-27 10:56] VITALS: BP 119/78
--- NOTE | 2019-07-27 11:46 | Discharge Summary ---
- NOTES TO OUTPATIENT PROVIDER Notes to Outpatient Provider: Follow up with PCP in one week. Please quit smoking. Please quit drinking alcohol. Date of Encounter: 07/27/19 Time of Encounter: 11:15 - Discharge Diagnosis (1) Alcohol withdrawal Priority: Primary Status: Acute Qualifiers: Complication of substance-induced condition: uncomplicated Qualified Co de(s): F10.230 - Alcohol dependence with withdrawal, uncomplicated (2) Syncope Priority: Primary Status: Acute Qualifiers: Syncope type: unspecified Qualified Code(s): R55 - Syncope and collapse (3) Alcohol withdrawal seizure Priority: Secondary Status: Acute Qualifiers: Complication of substance-induced condition: with unspecified complication Qualified Code(s): F10.239 - Alcohol dependence with withdrawal, unspecified; R56.9 - Unspecified convulsions (4) Dehydration Priority: Secondary Status: Resolved (5) Hypertension Priority: Secondary Status: Chronic Qualifiers: Hypertension type: essential hypertension Qualified Code(s): I10 - Essential (primary) hypertension (6) Tobacco dependence Priority: Secondary Status: Acute Hospital course: Mr. Fonseca is a 43 year old male past medical history of essential hypertension, alcoholism and alcohol withdrawal seizure patient presented to ER after syncopal episode experienced when he went to the convenience store to buy alcohol. Patient stated his last drink was yesterday morning 10 on leaving the convenience store he felt lightheaded and dizzy and passed out, falling and striking his head against the ground, sustaining a cut to his right ear which is sutured in the ED. In the ED the patient underwent CT scan of the head and cervical spine as well as chest x-ray which did not reveal any acute pathology. He was admitted in the hospital and placed him on apprenticeship consultant. Also patient was placed on seizure precautions. He was started on CIWA protocol with IV Ativan as needed and also placed him on scheduled Librium. His symptoms improved now, he is not in active DT;s now. His EEG did not show any epileptiform activity. Pt wanted to go home and f/u at out pt alcohol rehab center. SW / CM did provide all the necessary information. Will send him home on tapering dose of Librium - Time Spent with Patient Total time spent providing and/or coordinating discharge services: - Discharge Medications Prescriptions: New Folic Acid 1 mg PO DAILY #30 tablet Chlordiazepoxide [Librium] 25 mg PO TID 6 Days #12 capsule Nicotine Patch [Nicoderm] 21 mg TD HS #30 patch.td24 Thiamine (B-1) [Vitamin B-1] 100 mg PO DAILY #30 tablet Home Medications: Chlordiazepoxide [Librium] 25 mg PO TID 6 Days #12 capsule 07/27/19 [Rx] Folic Acid 1 mg PO DAILY #30 tablet 07/27/19 [Rx] Nicotine Patch [Nicoderm] 21 mg TD HS #30 patch.td24 07/27/19 [Rx] Thiamine (B-1) [Vitamin B-1] 100 mg PO DAILY #30 tablet 07/27/19 [Rx] Allergies/Adverse Reactions: Allergy/AdvReac Type Severity Reaction Status Date / Time No Known Drug Allergies Allergy See Verified 09/19/15 14:25 Comments Date of admission: 07/23/19 22:09 Primary care physician: PCP NONE Consults: 07/23/19 23:02 Consult to Nutrition [CONS] Routine Comment: Consulting Provider: NUTRITION Reason for Dietary Consult: PO Supplementation Diet Education 07/23/19 23:14 Consult to Digital Marketing Assistant [CONS] Routine Reason for SW Consult: Alcohol withdrawl 07/24/19 15:52 Consult to Interpret Exam [CONS] Routine Consulting Provider: Neno Cheatham I Consult to Interpret Exam: Interpret EEG - Constitutional Vitals: Temp Pulse Resp BP Pulse Ox 98.0 F 93 14 119/78 97 07/27/19 10:54 07/27/19 07:23 07/27/19 10:54 07/27/19 10:54 07/27/19 10:54 General appearance: Present: disheveled, A&O X 3, answers questions appropriately Exam: Gen: Alert, awake, Oriented to time,place and person no tremors Chest: Diminished breath sounds B/L, No wheezing, No crackles, No rales Heart: S1S2+ tachycardia No murmurs Abd: Soft, NT, BS +, No organomegaly Ext: No edema, pulses are palpable, No calf tenderness Neuro : No acute focal neuro deficits noticed Skin: No rash. - Patient Status Disposition: Home, Self-Care Condition: Good Overall status at discharge: patient is back to baseline - Discharge Instructions Follow Up With: Danisha Wade DO [Resident] - 07/30/19 2:00 pm Forms: ED Satisfaction Letter - Diet and Activity Activity: increase activity as tolerated Diet: low salt diet
== END 2019-07-27 13:50 | disposition home or self-care (01) ==
LOC: 3BNU 17:16 → EMEROOARM 17:16 → SUATTDRO 22:09 → 3BNU 23:01
PROVIDERS: ADMIT Internal Medicine; ATTEND Family Medicine

== ENCOUNTER 2021-07-10 16:13 | Inpatient (IN) ==
[2021-07-10] MEDS ORDERED: 0.9 % Sodium Chloride 1,000 ML IVC ONE (16:33)
[2021-07-10] MEDS ORDERED: Folic Acid 1 MG in 0.9 % Sodium Chloride 50 ML IVPB ONE (16:33)
[2021-07-10] MEDS ORDERED: THIAMINE IVPB ONE (16:33)
[2021-07-10] MEDS ORDERED: FOLIC ACID IVPB ONE (16:33)
[2021-07-10] MEDS ORDERED: SODIUM CHLORIDE 0.9% IVPB ONE (16:33)
[2021-07-10 16:57] LABS: Basophils % 0.8 %; Hemoglobin 16.1 g/dL (12.9-16.9); Immature Granulocytes % 0.4 % (0-4); Lymphocytes # 0.9 K/mcL (0.6-4.6); Lymphocytes % 17.1 %; Mean Corpuscular HGB Conc 34.3 g/dL (31.6-35.5); Mean Corpuscular Hemoglobin 32.5 pg (28.0-33.3); Mean Corpuscular Volume 94.8 fL (83.0-100.0); Mean Platelet Volume 9.5 fL (9.4-12.4); Monocytes # 0.5 K/mcL (0.0-1.3); Monocytes % 9.4 %; Neutrophils # 3.6 K/mcL (1.6-8.9); Platelet Count 190 K/mcL (140-400); Red Blood Count 4.96 M/mcL (4.19-5.50); Red Cell Distribution Width 11.5 % (11.5-14.5); Segmented Neutrophils % 72.3 %
[2021-07-10 17:04] LABS: Prothrombin Time 11.5 Seconds (9.4-12.1)
[2021-07-10 17:23] LABS: BUN/Creatinine Ratio 7 (6-26); Blood Urea Nitrogen 5 mg/dL (6-20); Calcium 9.4 mg/dL (8.6-10.3); Carbon Dioxide 23 mEq/L (23-29); Chloride 96 mEq/L (98-107); Ethanol < 10 mg/dL (Less than 10); Glucose 105 mg/dL (70-105); Lipase 27 Units/L (11-82); Magnesium 1.8 mg/dL (1.6-2.6); Osmolality,Calculated 276 (280-300); Sodium 134 mEq/L (136-145); eGFR For African Americans > 60 (> 60); eGFR For Non-African Americans > 60 (> 60)
[2021-07-10 18:35] LABS: Bilirubin,Urine Negative (Negative); Blood,Urine Negative (Negative); Clarity,Urine Clear (Clear); Color,Urine Light-Yellow (Yellow); Glucose,Urine (UA) Normal (Normal); Ketones,Urine 40 mg/dL (Negative); Leukocyte Esterase,Urine Negative (Negative); Nitrite,Urine Negative (Negative); Protein,Urine Trace mg/dL (Neg-Trace); Specific Gravity,Urine 1.017 (1.010-1.025); Urobilinogen,Urine Normal (Normal)
[2021-07-10] MEDS ORDERED: *HR* LORazepam 2 MG/ML VIAL IVP PRN (20:56)
[2021-07-10] MEDS ORDERED: Acetaminophen 325 MG TABLET PO PRN (20:58)
[2021-07-10] MEDS ORDERED: Ondansetron 4 MG/2 ML VIAL IVP PRN (20:58)
[2021-07-10] MEDS ORDERED: Naloxone 0.4 MG/ML INJ IVP PRN (20:58)
[2021-07-10] MEDS ORDERED: *HR* Metoprolol 5 MG/5 ML VIAL IVP ONE ×2 (21:05→23:32)
[2021-07-10 21:25] LABS: Troponin I < 0.03 ng/mL (< 0.04)
[2021-07-10] MEDS: Nicotine 14 MG PATCH.TD24 TD SCH (22:24)
[2021-07-11] MEDS: *HR* LORazepam 2 MG/ML VIAL IVP PRN (01:03)
[2021-07-11 04:50] LABS: Basophils % 0.6 %; Eosinophils # 0.1 K/mcL (0.0-0.6); Eosinophils % 1.4 %; Hematocrit 43.7 % (37.5-50.1); Hemoglobin 14.9 g/dL (12.9-16.9); Immature Granulocytes % 0.4 % (0-4); Lymphocytes # 1.3 K/mcL (0.6-4.6); Mean Corpuscular HGB Conc 34.1 g/dL (31.6-35.5); Mean Corpuscular Hemoglobin 32.8 pg (28.0-33.3); Mean Corpuscular Volume 96.3 fL (83.0-100.0); Mean Platelet Volume 9.8 fL (9.4-12.4); Monocytes # 0.6 K/mcL (0.0-1.3); Monocytes % 11.1 %; Neutrophils # 3.1 K/mcL (1.6-8.9); Platelet Count 177 K/mcL (140-400); Red Blood Count 4.54 M/mcL (4.19-5.50); Red Cell Distribution Width 11.1 % (11.5-14.5); Segmented Neutrophils % 60.5 %; White Blood Count 5.1 K/mcL (4.3-11.1)
[2021-07-11 05:10] LABS: Alanine Aminotransferase 43 Units/L (7-52); Albumin 3.7 g/dL (3.5-5.7); Albumin/Globulin Ratio 1.5 (1.1-2.2); Alkaline Phosphatase 95 Units/L (34-104); Aspartate Amino Transferase 52 Units/L (13-39); BUN/Creatinine Ratio 9 (6-26); Bilirubin,Total 1.4 mg/dL (0.3-1.0); Blood Urea Nitrogen 7 mg/dL (6-20); Calcium 9.1 mg/dL (8.6-10.3); Carbon Dioxide 26 mEq/L (23-29); Chloride 101 mEq/L (98-107); Globulin 2.5 g/dL (2.4-3.5); Glucose 113 mg/dL (70-105); Osmolality,Calculated 279 (280-300); Potassium 3.6 mEq/L (3.5-5.1); Sodium 135 mEq/L (136-145); Total Protein 6.2 g/dL (6.4-8.9); eGFR For African Americans > 60 (> 60); eGFR For Non-African Americans > 60 (> 60)
[2021-07-11 05:18] LABS: Thyroid Stimulating Hormone 3.103 mcIU/mL (0.340-5.600)
[2021-07-11] MEDS: *HR* Metoprolol 5 MG/5 ML VIAL IVP PRN ×2 (06:11→12:09)
[2021-07-11] MEDS ORDERED: lisinopriL 10 MG TABLET PO SCH (09:15)
[2021-07-11] MEDS: Folic Acid 1 MG TABLET PO SCH (09:56)
[2021-07-11] MEDS: Nicotine 14 MG PATCH.TD24 TD SCH (09:57)
[2021-07-11] MEDS: *HR* Enoxaparin 40 MG/0.4 ML SYRINGE SQ SCH (09:58)
[2021-07-11] MEDS ORDERED: *HR* LORazepam 2 MG/ML VIAL IVP PRN (11:18)
[2021-07-11] MEDS: Thiamine (B-1) 100 MG TABLET PO SCH (12:03)
[2021-07-11] MEDS: Multivit/Ca/Min/Fe/FA 1 TAB TABLET PO SCH (12:03)
[2021-07-11] MEDS ORDERED: lisinopriL 10 MG TABLET PO ONE (14:30)
[2021-07-12 05:49] LABS: BUN/Creatinine Ratio 14 (6-26); Blood Urea Nitrogen 13 mg/dL (6-20); Calcium 9.1 mg/dL (8.6-10.3); Carbon Dioxide 24 mEq/L (23-29); Chloride 101 mEq/L (98-107); Glucose 90 mg/dL (70-105); Magnesium 1.8 mg/dL (1.6-2.6); Osmolality,Calculated 284 (280-300); Phosphorous 4.1 mg/dL (2.7-4.5); Potassium 4.2 mEq/L (3.5-5.1); Sodium 137 mEq/L (136-145); eGFR For African Americans > 60 (> 60); eGFR For Non-African Americans > 60 (> 60)
[2021-07-12] MEDS ORDERED: *HR* Metoprolol 5 MG/5 ML VIAL IVP ONE (08:58)
[2021-07-12] MEDS: Folic Acid 1 MG TABLET PO SCH (09:14)
[2021-07-12] MEDS: lisinopriL 10 MG TABLET PO SCH (09:14)
[2021-07-12] MEDS: Thiamine (B-1) 100 MG TABLET PO SCH (09:14)
[2021-07-12] MEDS: *HR* LORazepam 2 MG/ML VIAL IVP PRN ×2 (09:14→22:08)
[2021-07-12] MEDS: *HR* Enoxaparin 40 MG/0.4 ML SYRINGE SQ SCH (09:15)
[2021-07-12] MEDS: Multivit/Ca/Min/Fe/FA 1 TAB TABLET PO SCH (09:15)
[2021-07-12] MEDS: Nicotine 14 MG PATCH.TD24 TD SCH (09:15)
[2021-07-13] MEDS: Multivit/Ca/Min/Fe/FA 1 TAB TABLET PO SCH (08:21)
[2021-07-13] MEDS: lisinopriL 10 MG TABLET PO SCH (08:21)
[2021-07-13] MEDS: Thiamine (B-1) 100 MG TABLET PO SCH (08:21)
[2021-07-13] MEDS: Nicotine 14 MG PATCH.TD24 TD SCH (08:22)
[2021-07-13] MEDS: *HR* Enoxaparin 40 MG/0.4 ML SYRINGE SQ SCH (08:22)
[2021-07-13] MEDS: Folic Acid 1 MG TABLET PO SCH (08:22)
[2021-07-13] MEDS: *HR* LORazepam 2 MG/ML VIAL IVP PRN (20:08)
[2021-07-14] MEDS: Nicotine 14 MG PATCH.TD24 TD SCH (08:34)
[2021-07-14] MEDS: Thiamine (B-1) 100 MG TABLET PO SCH (08:37)
[2021-07-14] MEDS: Folic Acid 1 MG TABLET PO SCH (08:37)
[2021-07-14] MEDS: Multivit/Ca/Min/Fe/FA 1 TAB TABLET PO SCH (08:37)
[2021-07-14] MEDS: *HR* Enoxaparin 40 MG/0.4 ML SYRINGE SQ SCH (08:38)
[2021-07-14] MEDS: lisinopriL 10 MG TABLET PO SCH (08:38)
[2021-07-15 07:01] VITALS: BP 99/63; PULSE 87; TEMP 97.8; O2SAT 95
[2021-07-15] MEDS: Multivit/Ca/Min/Fe/FA 1 TAB TABLET PO SCH (08:48)
[2021-07-15] MEDS: *HR* Enoxaparin 40 MG/0.4 ML SYRINGE SQ SCH (08:48)
[2021-07-15] MEDS: Nicotine 14 MG PATCH.TD24 TD SCH (08:48)
[2021-07-15] MEDS: Thiamine (B-1) 100 MG TABLET PO SCH (08:48)
[2021-07-15] MEDS: Folic Acid 1 MG TABLET PO SCH (08:48)
[2021-07-15] MEDS: lisinopriL 10 MG TABLET PO SCH (08:48)
[2021-07-15] MEDS ORDERED: *HR* LORazepam 0.5 MG TABLET PO ONE (08:53)
== END 2021-07-15 11:15 | disposition other institution (70) | DRG 775 ==
LOC: EMEROOARM 16:13 → 3ANU 16:13 → SUATTDRO 20:06 → 3ANU 20:51
PROVIDERS: ADMIT Internal Medicine; ATTEND Internal Medicine

== ENCOUNTER 2022-06-07 13:39 | Inpatient (IN) ==
[2022-06-07] MEDS ORDERED: 0.9 % Sodium Chloride 2,000 ML ONE (13:52)
[2022-06-07] MEDS ORDERED: 0.9 % Sodium Chloride 2,000 ML IV ONE (14:03)
[2022-06-07] MEDS ORDERED: Iopamidol - 370 500 ML MLS IVP ONE (14:03)
[2022-06-07] MEDS ORDERED: *HR* LORazepam 2 MG/ML VIAL IVP PRN ×2 (14:05)
[2022-06-07] MEDS ORDERED: Thiamine (B-1) 200 MG in 0.9 % Sodium Chloride 50 ML IVPB SCH (14:15)
[2022-06-07] MEDS ORDERED: Folic Acid 1 MG in 0.9 % Sodium Chloride 50 ML IVPB SCH (14:15)
[2022-06-07] MEDS: *HR* LORazepam 2 MG/ML VIAL IVP PRN ×2 (14:18→20:13)
[2022-06-07 14:34] LABS: Basophils % 0.2 %; Eosinophils % 0.1 %; Hematocrit 41.5 % (37.5-50.1); Hemoglobin 14.7 g/dL (12.9-16.9); Immature Granulocytes % 0.7 % (0-4); Lymphocytes # 0.8 K/mcL (0.6-4.6); Lymphocytes % 8.2 %; Mean Corpuscular HGB Conc 35.4 g/dL (31.6-35.5); Mean Corpuscular Hemoglobin 31.9 pg (28.0-33.3); Mean Platelet Volume 9.7 fL (9.4-12.4); Monocytes % 10.8 %; Neutrophils # 7.6 K/mcL (1.6-8.9); Platelet Count 268 K/mcL (140-400); Red Blood Count 4.61 M/mcL (4.19-5.50); Red Cell Distribution Width 12.2 % (11.5-14.5); White Blood Count 9.5 K/mcL (4.3-11.1)
[2022-06-07 14:35] LABS: Alanine Aminotransferase 36 Units/L (7-52); Albumin 4.1 g/dL (3.5-5.7); Albumin/Globulin Ratio 1.3 (1.1-2.2); Alkaline Phosphatase 96 Units/L (34-104); Aspartate Amino Transferase 29 Units/L (13-39); BUN/Creatinine Ratio 8 (6-26); Bilirubin,Direct 0.2 mg/dL (0.0-0.2); Bilirubin,Indirect 0.7 mg/dL (0.0-1.0); Bilirubin,Total 0.9 mg/dL (0.3-1.0); Blood Urea Nitrogen 39 mg/dL (6-20); Calcium 8.7 mg/dL (8.6-10.3); Carbon Dioxide 30 mEq/L (23-29); Chloride 74 mEq/L (98-107); Globulin 3.1 g/dL (2.4-3.5); Glucose 120 mg/dL (70-105); Lipase 44 Units/L (11-82); Osmolality,Calculated 257 (280-300); Potassium 3.4 mEq/L (3.5-5.1); Sodium 118 mEq/L (136-145); Total Protein 7.2 g/dL (6.4-8.9); eGFR For African Americans 15 (> 60); eGFR For Non-African Americans 12 (> 60)
[2022-06-07 14:41] LABS: Troponin I < 0.03 ng/mL (< 0.04)
[2022-06-07 14:53] LABS: Prothrombin Time 10.7 Seconds (9.4-12.1)
[2022-06-07 14:55] LABS: Activated Partial Thrombo Time 29.5 Seconds (26.0-36.0)
[2022-06-07] MEDS ORDERED: Naloxone 0.4 MG/ML INJ IVP PRN (17:48)
[2022-06-07 18:35] LABS: Amphetamine Screen,Urine Negative ng/mL (Cutoff=1000); Barbiturate Screen,Urine Negative ng/mL (Cutoff=200); Benzodiazepines Screen,Urine Negative ng/mL (Cutoff=200); Cannabinoid Screen,Urine Negative ng/mL (Cutoff = 50); Cocaine Screen,Urine Negative ng/mL (Cutoff= 300); Opiate Screen,Urine Negative ng/mL (Cutoff=300); Phencyclidine Screen,Urine Negative ng/mL (Cutoff=25)
[2022-06-07 18:36] LABS: Sodium, Urine < 10.0 mEq/L
[2022-06-07] MEDS: Thiamine (B-1) 100 MG, Folic Acid 1 MG, MVI, adult with vitamin K 10 ML in 0.9 % Sodi... IVPB SCH (19:33)
[2022-06-07] MEDS: 0.9 % Sodium Chloride 1,000 ML IVC SCH (19:34)
[2022-06-07] MEDS: Nicotine 14 MG PATCH.TD24 TD SCH (19:47)
[2022-06-07 21:34] LABS: BUN/Creatinine Ratio 14 (6-26); Blood Urea Nitrogen 38 mg/dL (6-20); Carbon Dioxide 27 mEq/L (23-29); Chloride 83 mEq/L (98-107); Creatine Kinase 249 Units/L (30-223); Glucose 93 mg/dL (70-105); Osmolality,Calculated 261 (280-300); Sodium 121 mEq/L (136-145); Troponin I < 0.03 ng/mL (< 0.04); eGFR For African Americans 32 (> 60); eGFR For Non-African Americans 26 (> 60)
[2022-06-07 21:47] LABS: Thyroid Stimulating Hormone 0.836 mcIU/mL (0.340-5.600)
[2022-06-08 02:38] LABS: Hematocrit 36.8 % (37.5-50.1); Mean Corpuscular HGB Conc 34.5 g/dL (31.6-35.5); Mean Corpuscular Hemoglobin 32.1 pg (28.0-33.3); Mean Corpuscular Volume 92.9 fL (83.0-100.0); Mean Platelet Volume 9.4 fL (9.4-12.4); Platelet Count 222 K/mcL (140-400); Red Blood Count 3.96 M/mcL (4.19-5.50); White Blood Count 6.4 K/mcL (4.3-11.1)
[2022-06-08 03:04] LABS: Hemoglobin 12.7 g/dL (12.9-16.9)
[2022-06-08 03:12] LABS: Alanine Aminotransferase 30 Units/L (7-52); Albumin 3.3 g/dL (3.5-5.7); Albumin/Globulin Ratio 1.4 (1.1-2.2); Alkaline Phosphatase 72 Units/L (34-104); Aspartate Amino Transferase 32 Units/L (13-39); Bilirubin,Total 1.1 mg/dL (0.3-1.0); Blood Urea Nitrogen 33 mg/dL (6-20); Calcium 8.1 mg/dL (8.6-10.3); Carbon Dioxide 29 mEq/L (23-29); Chloride 89 mEq/L (98-107); Globulin 2.3 g/dL (2.4-3.5); Glucose 83 mg/dL (70-105); Osmolality,Calculated 264 (280-300); Potassium 3.6 mEq/L (3.5-5.1); Sodium 124 mEq/L (136-145); Total Protein 5.6 g/dL (6.4-8.9); Troponin I < 0.03 ng/mL (< 0.04)
[2022-06-08] MEDS: D5% in Water 1,000 ML IVC SCH (03:23)
[2022-06-08] MEDS: 0.9 % Sodium Chloride 1,000 ML IVC SCH ×3 (03:46→20:01)
[2022-06-08 04:01] LABS: BUN/Creatinine Ratio 18 (6-26); eGFR For African Americans 49 (> 60); eGFR For Non-African Americans 40 (> 60)
[2022-06-08 05:09] LABS: VBG Ionized Calcium 1.12 mmol/L (1.15-1.35)
[2022-06-08 05:26] LABS: BUN/Creatinine Ratio 21 (6-26); Blood Urea Nitrogen 32 mg/dL (6-20); Calcium 8.1 mg/dL (8.6-10.3); Carbon Dioxide 28 mEq/L (23-29); Chloride 91 mEq/L (98-107); Glucose 86 mg/dL (70-105); Osmolality,Calculated 264 (280-300); Potassium 3.9 mEq/L (3.5-5.1); Sodium 124 mEq/L (136-145); eGFR For African Americans > 60 (> 60); eGFR For Non-African Americans 51 (> 60)
[2022-06-08 06:03] LABS: Magnesium 2.7 mg/dL (1.6-2.6); Phosphorous 1.9 mg/dL (2.7-4.5)
[2022-06-08] MEDS: Nicotine 14 MG PATCH.TD24 TD SCH (07:29)
[2022-06-08 11:14] LABS: Enterococcus faecalis by PCR Not Detected (Not Detect); Enterococcus faecium by PCR Not Detected (Not Detect)
[2022-06-08 11:15] LABS: A.calcoaceticus-baumannii cplx Not Detected (Not Detect); Bacteroides fragilis by PCR Not Detected (Not Detect); Candida albicans by PCR Not Detected (Not Detect); Candida auris by PCR Not Detected (Not Detect); Candida glabrata by PCR Not Detected (Not Detect); Candida krusei by PCR Not Detected (Not Detect); Candida parapsilosis by PCR Not Detected (Not Detect); Candida tropicalis by PCR Not Detected (Not Detect); Crypto. neoformans/gattii PCR Not Detected (Not Detect); Enterobacter cloacae Cmplx PCR Not Detected (Not Detect); Enterobacterales by PCR Not Detected (Not Detect); Escherichia coli by PCR Not Detected (Not Detect); Klebs. pneumoniae group by PCR Not Detected (Not Detect); Klebsiella aerogenes by PCR Not Detected (Not Detect); Klebsiella oxytoca by PCR Not Detected (Not Detect); Proteus by PCR Not Detected (Not Detect); Pseudomonas aeruginosa by PCR Not Detected (Not Detect); Salmonella species by PCR Not Detected (Not Detect); Serratia marcescens by PCR Not Detected (Not Detect); Staph epidermidis by PCR Not Detected (Not Detect); Staph lugdunensis by PCR Not Detected (Not Detect); Staphylococcus aureus by PCR Not Detected (Not Detect); Staphylococcus by PCR DETECTED (Not Detect); Stenotrophomonas maltophilia Not Detected (Not Detect); Streptococcus agalactiae(B)PCR Not Detected (Not Detect); Streptococcus by PCR Not Detected (Not Detect); Streptococcus pneumoniae PCR Not Detected (Not Detect); Streptococcus pyogenes (A) PCR Not Detected (Not Detect)
[2022-06-08 11:35] LABS: Blood Urea Nitrogen 29 mg/dL (6-20); Calcium 8.6 mg/dL (8.6-10.3); Carbon Dioxide 29 mEq/L (23-29); Chloride 91 mEq/L (98-107); Glucose 116 mg/dL (70-105); Magnesium 2.4 mg/dL (1.6-2.6); Osmolality,Calculated 267 (280-300); Potassium 4.2 mEq/L (3.5-5.1); Sodium 125 mEq/L (136-145)
[2022-06-08] MEDS ORDERED: 2 PO PRN (12:00)
[2022-06-08] MEDS ORDERED: *HR* LORazepam 1 MG TABLET PO PRN ×2 (12:00)
[2022-06-08 12:49] LABS: BUN/Creatinine Ratio 27 (6-26); eGFR For African Americans > 60 (> 60); eGFR For Non-African Americans > 60 (> 60)
[2022-06-08] MEDS: Calcium Gluconate 1gm/50mL 1 GM/50 ML BAG IVPB SCH ×2 (13:08→14:16)
[2022-06-08] MEDS: *HR* Heparin 5,000 UNIT/ML VIAL SQ SCH ×2 (13:09→18:07)
[2022-06-08 16:55] LABS: BUN/Creatinine Ratio 25 (6-26); Blood Urea Nitrogen 22 mg/dL (6-20); Calcium 8.4 mg/dL (8.6-10.3); Carbon Dioxide 32 mEq/L (23-29); Chloride 92 mEq/L (98-107); Glucose 105 mg/dL (70-105); Osmolality,Calculated 268 (280-300); Potassium 4.2 mEq/L (3.5-5.1); Sodium 127 mEq/L (136-145); eGFR For African Americans > 60 (> 60); eGFR For Non-African Americans > 60 (> 60)
[2022-06-08] MEDS: Thiamine (B-1) 100 MG, Folic Acid 1 MG, MVI, adult with vitamin K 10 ML in 0.9 % Sodi... IVPB SCH (18:07)
[2022-06-09] MEDS: D5% in Water 1,000 ML IVC SCH (00:57)
[2022-06-09 01:05] LABS: Hematocrit 35.4 % (37.5-50.1); Mean Corpuscular HGB Conc 33.9 g/dL (31.6-35.5); Mean Corpuscular Hemoglobin 31.7 pg (28.0-33.3); Mean Corpuscular Volume 93.7 fL (83.0-100.0); Mean Platelet Volume 9.4 fL (9.4-12.4); Platelet Count 239 K/mcL (140-400); Red Blood Count 3.78 M/mcL (4.19-5.50); Red Cell Distribution Width 11.7 % (11.5-14.5); White Blood Count 5.8 K/mcL (4.3-11.1)
[2022-06-09 01:17] LABS: BUN/Creatinine Ratio 23 (6-26); Blood Urea Nitrogen 16 mg/dL (6-20); Calcium 8.3 mg/dL (8.6-10.3); Carbon Dioxide 31 mEq/L (23-29); Chloride 94 mEq/L (98-107); Glucose 104 mg/dL (70-105); Osmolality,Calculated 269 (280-300); Sodium 129 mEq/L (136-145); eGFR For African Americans > 60 (> 60); eGFR For Non-African Americans > 60 (> 60)
[2022-06-09] MEDS: 0.9 % Sodium Chloride 1,000 ML IVC SCH (05:46)
[2022-06-09] MEDS: *HR* Heparin 5,000 UNIT/ML VIAL SQ SCH ×2 (06:29→17:57)
[2022-06-09] MEDS: Nicotine 14 MG PATCH.TD24 TD SCH (08:54)
[2022-06-09] MEDS ORDERED: D5% in Water 1,000 ML IVC SCH (09:27)
[2022-06-09] MEDS ORDERED: Naloxone 0.4 MG/ML INJ IVP PRN (09:27)
[2022-06-09] MEDS ORDERED: *HR* LORazepam 1 MG TABLET PO PRN ×3 (09:27)
[2022-06-09] MEDS ORDERED: Thiamine (B-1) 100 MG, Folic Acid 1 MG, MVI, adult with vitamin K 10 ML in 0.9 % Sodi... IVPB SCH (18:00)
[2022-06-10] MEDS: *HR* Heparin 5,000 UNIT/ML VIAL SQ SCH ×2 (04:24→16:46)
[2022-06-10 05:43] LABS: Hematocrit 38.3 % (37.5-50.1); Hemoglobin 12.3 g/dL (12.9-16.9); Mean Corpuscular HGB Conc 32.1 g/dL (31.6-35.5); Mean Corpuscular Hemoglobin 31.1 pg (28.0-33.3); Mean Platelet Volume 9.3 fL (9.4-12.4); Platelet Count 243 K/mcL (140-400); Red Blood Count 3.95 M/mcL (4.19-5.50); Red Cell Distribution Width 11.8 % (11.5-14.5); White Blood Count 7.8 K/mcL (4.3-11.1)
[2022-06-10 06:01] LABS: BUN/Creatinine Ratio 11 (6-26); Blood Urea Nitrogen 8 mg/dL (6-20); Calcium 8.9 mg/dL (8.6-10.3); Carbon Dioxide 33 mEq/L (23-29); Chloride 99 mEq/L (98-107); Glucose 98 mg/dL (70-105); Osmolality,Calculated 276 (280-300); Potassium 4.4 mEq/L (3.5-5.1); Sodium 134 mEq/L (136-145); eGFR For African Americans > 60 (> 60); eGFR For Non-African Americans > 60 (> 60)
[2022-06-10] MEDS ORDERED: Nicotine 14 MG PATCH.TD24 TD SCH (09:00)
[2022-06-10] MEDS ORDERED: hydrOXYzine pamoate 25 MG CAPSULE PO PRN (11:23)
[2022-06-10] MEDS ORDERED: Naloxone 0.4 MG/ML INJ IVP PRN (13:12)
[2022-06-10] MEDS: Acetaminophen 325 MG TABLET PO PRN ×2 (16:07→23:51)
[2022-06-10] MEDS: hydrOXYzine pamoate 25 MG CAPSULE PO PRN (16:10)
[2022-06-11] MEDS: *HR* Heparin 5,000 UNIT/ML VIAL SQ SCH ×2 (05:57→17:09)
[2022-06-11] MEDS: Nicotine 14 MG PATCH.TD24 TD SCH (08:52)
[2022-06-11] MEDS: hydrOXYzine pamoate 25 MG CAPSULE PO PRN ×2 (08:59→21:13)
[2022-06-11 09:07] LABS: Basophils # 0.1 K/mcL (0.0-0.2); Basophils % 0.8 %; Eosinophils % 0.1 %; Hematocrit 39.8 % (37.5-50.1); Hemoglobin 13.2 g/dL (12.9-16.9); Lymphocytes # 0.9 K/mcL (0.6-4.6); Lymphocytes % 11.9 %; Mean Corpuscular HGB Conc 33.2 g/dL (31.6-35.5); Mean Corpuscular Volume 96.4 fL (83.0-100.0); Mean Platelet Volume 8.8 fL (9.4-12.4); Monocytes # 0.6 K/mcL (0.0-1.3); Monocytes % 7.6 %; Neutrophils # 6.1 K/mcL (1.6-8.9); Platelet Count 245 K/mcL (140-400); Red Blood Count 4.13 M/mcL (4.19-5.50); Red Cell Distribution Width 11.9 % (11.5-14.5); Segmented Neutrophils % 78.6 %; White Blood Count 7.8 K/mcL (4.3-11.1)
[2022-06-11 12:05] LABS: BUN/Creatinine Ratio 6 (6-26); Blood Urea Nitrogen 6 mg/dL (6-20); Calcium 8.7 mg/dL (8.6-10.3); Carbon Dioxide 27 mEq/L (23-29); Chloride 98 mEq/L (98-107); Glucose 206 mg/dL (70-105); Osmolality,Calculated 276 (280-300); Potassium 4.2 mEq/L (3.5-5.1); Sodium 131 mEq/L (136-145); eGFR For African Americans > 60 (> 60); eGFR For Non-African Americans > 60 (> 60)
[2022-06-11] MEDS ORDERED: 0.9 % Sodium Chloride 1,000 ML IVC ONE (13:09)
[2022-06-11] MEDS: CeFAZolin 2,000 MG/120 ML BAG IVPB SCH ×2 (14:43→20:53)
[2022-06-12 02:10] LABS: Basophils # 0.1 K/mcL (0.0-0.2); Basophils % 1.2 %; Eosinophils # 0.1 K/mcL (0.0-0.6); Eosinophils % 0.9 %; Hematocrit 37.9 % (37.5-50.1); Hemoglobin 12.1 g/dL (12.9-16.9); Immature Granulocytes % 1.4 % (0-4); Lymphocytes # 1.7 K/mcL (0.6-4.6); Mean Corpuscular HGB Conc 31.9 g/dL (31.6-35.5); Mean Corpuscular Hemoglobin 31.2 pg (28.0-33.3); Mean Corpuscular Volume 97.7 fL (83.0-100.0); Monocytes # 1.2 K/mcL (0.0-1.3); Monocytes % 15.6 %; Neutrophils # 4.6 K/mcL (1.6-8.9); Platelet Count 233 K/mcL (140-400); Red Blood Count 3.88 M/mcL (4.19-5.50); Segmented Neutrophils % 58.9 %; White Blood Count 7.8 K/mcL (4.3-11.1)
[2022-06-12 02:30] LABS: BUN/Creatinine Ratio 7 (6-26); Blood Urea Nitrogen 7 mg/dL (6-20); Calcium 8.6 mg/dL (8.6-10.3); Carbon Dioxide 27 mEq/L (23-29); Chloride 103 mEq/L (98-107); Glucose 100 mg/dL (70-105); Osmolality,Calculated 282 (280-300); Sodium 137 mEq/L (136-145); eGFR For African Americans > 60 (> 60); eGFR For Non-African Americans > 60 (> 60)
[2022-06-12] MEDS: CeFAZolin 2,000 MG/120 ML BAG IVPB SCH ×2 (04:44→11:50)
[2022-06-12] MEDS: *HR* Heparin 5,000 UNIT/ML VIAL SQ SCH (04:55)
[2022-06-12] MEDS: Nicotine 14 MG PATCH.TD24 TD SCH (08:30)
[2022-06-12] MEDS: hydrOXYzine pamoate 25 MG CAPSULE PO PRN (09:24)
[2022-06-12 10:44] VITALS: BP 128/86; PULSE 114; TEMP 98.1; O2SAT 99
== END 2022-06-12 15:31 | disposition home or self-care (01) | DRG 775 ==
LOC: EMEROOARM 13:39 → ICNU 13:39 → SUATTDRO 18:15 → ICNU 18:54 → 3BNU 06-10 10:52
PROVIDERS: ADMIT Internal Medicine; ATTEND Internal Medicine